=== PATIENT | female | born 1950 | race Caucasian/White ===

== ENCOUNTER → 2016-10-10 | Outpatient (CLI) | payer OTHER ==
[~2016-10-10] MED LIST: /DULO30CA PO; ACET65TA PO; ALEV220C2 PO; ALEV220T26 PO; ALEVE; ASPI81TA3 PO; ATEN25TA PO; ATOR1TAB21 PO; CALC1TAB56 PO; CALC600T10; CALCTAB22 PO; COUM2.5T17 PO; CYCL10TA PO; CYMB60CA3 PO; FLECTOR1.3 TD; FLEXERIL PO; GABA-282 PO; INDO25CA2 OR; LIDO5DIS EXT; LIDO5DIS41 TD; MILKSUS PO; MULT1TAB10 PO; ONDA4TAB6 PO; PERC5TAB12 PO; PRIL20CA9 PO; SENN1TAB2 PO; THERGRAN PO; TRAM50TA2 PO; TYLE325T5 PO; TYLE500T78 PO; VICO5TAB; VICO5TAB PO; VITA500C24 PO; VITA500T PO; VITA500T3 PO; [UNRECOGNIZED DRUG - OTHER] PO
--- NOTE | 2016-10-10 16:51 | REP ---
TRIPLE PHASE BONE SCAN OF THE KNEES: Following the intravenous administration of 21.0 millicuries of technetium 99M MDP, patient's knees are imaged in the flow phase and the anterior and posterior projections showing increased blood flow in the region of the right knee compared to the left. Immediate blood pool and 2 hour delayed images are performed of the knees in the anterior, posterior, and both lateral projections. There is mild diffuse increase blood pooling in the region of the right knee adjacent to a photopenic prosthesis which appears to have been placed 12/02/2015. Delayed imaged again show the photopenic prosthesis with diffuse increased uptake in the distal femur and proximal tibia adjacent to the prosthesis. There is also increased uptake diffusely in the right patella. Left knee joint demonstrates mild periarticular arthritic uptake both medially and laterally. IMPRESSION: Increased blood flow, blood pooling and delayed activity in the distal femur and proximal tibial adjacent to the right knee prosthesis. There is also increased uptake in the right patella. Signed by Tano Raymond MD 10/10/2016 05:11 P
== END ==
LOC: M RAD 09:49
PROVIDERS: ATTEND Physician Assistant
DX: Z96.651 Presence of right artificial knee joint (principal)

== ENCOUNTER → 2016-11-03 | Outpatient (REF) | payer OTHER ==
[2016-11-03 12:02] LABS: BASO % 0.3 % (0.0-1.0); EOS # 0.2 K/mm3 (0.0-0.50); EOS % 1.7 % (0.0-3.0); LARGE UNSTAINED CELL # 0.3 K/mm3 (0.0-0.4); LARGE UNSTAINED CELL % 3.3 % (0.0-4.0); LYMPH # 1.2 K/mm3 (1.5-4.5); MEAN CORPUSCULAR HEMOGLOBIN 28.4 pg (27.0-33.0); MEAN CORPUSCULAR HGB CONC 32.7 g/dl (32.0-36.5); MONO # 0.6 K/mm3 (0.0-0.8); MONO % 6.5 % (0.0-5.0); NEUTROPHILS # 7.4 K/mm3 (1.8-7.7); NEUTROPHILS % 76.2 % (36.0-66.0); PLATELET COUNT, AUTOMATED 377 k/mm3 (150-450); RED CELL DISTRIBUTION WIDTH 14.8 % (11.5-14.5); WHITE BLOOD COUNT 9.7 K/mm3 (4.0-10.0)
[2016-11-03 13:48] LABS: ERYTHROCYTE SEDIMENTATION RATE 31 mm/hr (0-30)
[2016-11-03 21:36] LABS: SYNOVIAL FLUID COLOR PINK (YELLOW)
[2016-11-03 21:37] LABS: RBC ADVIA BF 0.11; WBC CALC. BF 7900 cells/uL (0-20)
[2016-11-03 21:38] LABS: BF DIFF IF INDICATED? YES (NO); HCT SOURCE RT KNEE; RBC CALC. BF < 10000 (< 10mm3 cells/uL)
[2016-11-04 08:14] LABS: CC BF DIFF EXAM CYTOCENTRIFUGE
== END ==
LOC: M LABDRAW1 11:25
PROVIDERS: ATTEND Orthopaedic Surgery
DX: M25.561 Pain in right knee (principal); Z96.651 Presence of right artificial knee joint

== ENCOUNTER → 2016-11-10 | Outpatient (CLI) | payer OTHER ==
[2016-11-10 11:10] LABS: MEAN CORPUSCULAR HEMOGLOBIN 28.5 pg (27.0-33.0); MEAN CORPUSCULAR HGB CONC 32.5 g/dl (32.0-36.5); MEAN CORPUSCULAR VOLUME 87.8 fl (80.0-96.0); RED CELL DISTRIBUTION WIDTH 14.8 % (11.5-14.5)
--- NOTE | 2016-11-10 11:27 | REP ---
Clinical: Preoperative assessment. Hypertension. . Comparison: 11/17/2015 . Technique: PA and lateral. Findings: The mediastinum and cardiac silhouette are normal. Airway is patent and midline. The lung chávez are clear and without acute consolidation, effusion, or pneumothorax. The skeletal structures are intact and normal. Impression: 1. No acute cardiopulmonary process. Signed by Te Santana MD 11/10/2016 11:17 A
[2016-11-10 11:38] LABS: ALBUMIN 3.6 GM/DL (3.2-5.2); ALBUMIN/GLOBULIN RATIO 1.06 (1.00-1.93); ALKALINE PHOSPHATASE 131 U/L (45-117); ALT/SGPT 25 U/L (12-78); ANION GAP 6 MEQ/L (8-16); AST/SGOT 14 U/L (15-37); BILIRUBIN,TOTAL 0.4 MG/DL (0.2-1.0); BLOOD UREA NITROGEN 16 MG/DL (7-18); CARBON DIOXIDE LEVEL 34 MEQ/L (21-32); CHLORIDE LEVEL 101 MEQ/L (98-107); CREATININE FOR GFR 0.55 MG/DL (0.55-1.02); GLOMERULAR FILTRATION RATE > 60.0 (>45); GLUCOSE, FASTING 78 MG/DL (80-110); POTASSIUM SERUM 4.3 MEQ/L (3.5-5.1); SODIUM LEVEL 141 MEQ/L (136-145)
--- NOTE | 2016-11-10 13:04 | ECGEPIP ---
Stationary ECG Study [facility] Test Date: 2016-11-10 Pat Name: CAMILLE SOLORZANO Department: Room: - Gender: F Resident Services Manager: ALEXANDER : 1950 Requested By: Moses Leslie Order Number: [id number] Reading MD: Destin Veliz Measurements Intervals [place] Rate: 51 P: 30 ID: 160 QRS: 14 QRSD: 88 T: 52 QT: 419 QTc: 388 Interpretive Statements SINUS BRADYCARDIA Delayed anterior R wave progression No significant change when compared to prior tracing of 11-17-15 Electronically Signed On 11-10-2016 13:04:21 EDT by Destin Veliz
[2016-11-10 14:07] LABS: INR 0.91
== END ==
LOC: M ADMPAT 10:07
PROVIDERS: ATTEND Orthopaedic Surgery
DX: Z01.818 Encounter for other preprocedural examination (principal); M00.9 Pyogenic arthritis, unspecified

== ENCOUNTER 2016-11-15 12:53 | Inpatient (IN) | payer OTHER ==
[2016-11-10 10:46] VITALS: BP 124/68
[~2016-11-15] VITALS: Ht 170.2 cm; Wt 86.2 kg
[2016-11-15] MEDS ORDERED: LR 1,000 ML IV ONE (13:00)
[2016-11-15] MEDS ORDERED: MIDAZOLAM INJ 2 MG/2 ML VIAL (J2250) As Ordered ONE ×2 (14:15→15:01)
[2016-11-15] MEDS ORDERED: fentaNYL 100 MCG/2 ML INJECTION (J3010) As Ordered ONE ×2 (14:15→15:00)
[2016-11-15] MEDS ORDERED: TOBRAMYCIN SULF 1.2 GM VIAL As Ordered ONE (14:17)
[2016-11-15] MEDS ORDERED: ceFAZolin 1GM INJ (J0690) As Ordered ONE (14:18)
[2016-11-15] MEDS ORDERED: VANCOMYCIN 1000 MG/20 ML VIAL (J3370) As Ordered ONE ×4 (14:18→16:47)
[2016-11-15] MEDS ORDERED: PROPOFOL 200 MG/20 ML VIAL As Ordered ONE ×4 (15:00→17:18)
[2016-11-15] MEDS ORDERED: LIDOCAINE 2% INJ 100 MG/5 ML SDV (FOR ANES.) As Ordered ONE (15:00)
[2016-11-15] MEDS ORDERED: fentaNYL 100 MCG/2 ML INJECTION (J3010) IV ONE (15:00)
[2016-11-15] MEDS ORDERED: MIDAZOLAM INJ 2 MG/2 ML VIAL (J2250) IV ONE (15:00)
--- NOTE | 2016-11-15 15:12 | HPE ---
DATE OF ADMISSION: 11/15/2016 This is a 66-year woman who has had a right total knee arthroplasty done last fall by Dr. Koo. She has had ongoing issues for several months of some pain and swelling, and it was determined based on preoperative workup, including knee aspiration, bone scan, x-rays, joint fluid analysis, that it was very likely she had an infected total knee. There was evidence of loosening on the x-ray. Her current medications include Aleve, aspirin, cyclobenzaprine, calcium, multivitamin, atorvastatin, Lidoderm atenolol, Cymbalta, omeprazole, diclofenac. PAST MEDICAL HISTORY: Includes: 1. Hypertension. 2. High cholesterol. 3. Gastroesophageal reflux disease (GERD). PAST SURGICAL HISTORY: Includes: 1. Previous knee surgeries, multiple on the right times four. 2. Lumbar spinal surgery. 3. Right foot surgery. SOCIAL HISTORY: The patient quit smoking 4 years ago but does drink alcohol. FAMILY HISTORY: Noncontributory. REVIEW OF SYSTEMS: Denies any current chest pain, heart palpitations, cough, wheezing, difficulty breathing, shortness of breath. Denies any abdominal pain, nausea, vomiting, constipation, diarrhea. Denies any recent respiratory infection or urinary symptoms. Does have ongoing pain with this right knee. PHYSICAL EXAMINATION: She is alert and oriented in no acute distress. HEENT: Extraocular muscles intact. Pharynx benign. CARDIAC: Regular rate and rhythm. LUNGS: Clear to auscultation. ABDOMEN: Soft, nontender, nondistended. EXTREMITIES: Right lower extremity demonstrates some moderate swelling of her knee. She has a well-healed curvilinear incision over the anteromedial aspect of the knee. She is grossly neurologically intact. Moves her foot and ankle and has good capillary refill. LABORATORY WORKUP: Her CBC was essentially within normal limits. She had a white count have in her knee aspiration of approximately 7800. Culture so far, aerobic culture from the office, has not grown anything. She had a bone scan that showed increased uptake around the entire prosthesis. She had an x-ray in the office that showed loosening around the prosthesis. IMPRESSION: Right knee replacement, almost a year out, with a several-month history of swelling and pain with multiple indicators for underlying infection. RECOMMENDATIONS: I have suggested that we go ahead with the resection arthroplasty and placement of an antibiotic spacer in the form of a Prostalac . She wishes to go ahead with this. She understands the nature of this, the risks of bleeding, infection, damage to nerves or vessels, persistent pain, wear, loosening, dislocation, blood clots, medical problems, , among others. Preoperative medical clearance was obtained by Dr. Connor. I have spoken with Dr. Santino León about this case several times, and she is recommending vancomycin postoperatively, and we will obtain multiple cultures prior to antibiotic initiation in the operating room in the form of aerobic, anaerobic times two and fungal cultures.
[2016-11-15] MEDS ORDERED: EPINEPHrine INJ 1 MG/ML 1ML AMP ONE (15:23)
[2016-11-15] MEDS ORDERED: ROPIvacaine 0.5% 30 ML INJECTION (J2795) ONE (15:23)
[2016-11-15] MEDS ORDERED: BUPIVACAINE LIPOSOME/PF 1.3% 20 ML VIAL (13.3MG/ML)(EXPAREL) As Ordered ONE (15:40)
[2016-11-15] MEDS ORDERED: TRANEXAMIC ACID 100 MG/ML 10ML VIAL As Ordered ONE (17:14)
[2016-11-15] MEDS ORDERED: EPINEPHrine INJ 1 MG/ML 1ML AMP As Ordered ONE (17:14)
[2016-11-15] MEDS ORDERED: PERCOCET 5MG/325MG TAB As Ordered ONE (17:51)
[2016-11-15] MEDS ORDERED: MORPHINE 1MG/ML IN 0.9% NACL 100ML IV BAG As Ordered ONE (17:55)
[2016-11-15] MEDS ORDERED: EPIDURAL/PCA KEYS XX PRN (18:15)
[2016-11-15] MEDS ORDERED: LR 1,000 ML IV SCH ×2 (18:15→18:30)
[2016-11-15] MEDS ORDERED: NALBUPHINE HCL 10 MG/ML AMP (J2300) IV PRN (18:15)
[2016-11-15] MEDS ORDERED: MORPHINE 1MG/ML IN 0.9% NACL 100ML IV BAG IV PRN (18:15)
[2016-11-15] MEDS ORDERED: PERCOCET 5MG/325MG TAB PO PRN (18:15)
[2016-11-15] MEDS ORDERED: ONDANSETRON 4MG/2ML VIAL (J2405) IV PRN ×2 (18:15→18:30)
[2016-11-15] MEDS ORDERED: fentaNYL 100 MCG/2 ML INJECTION (J3010) IV PRN (18:15)
[2016-11-15] MEDS ORDERED: NALOXONE INJ 0.4 MG/1 ML VIAL (J2310) IV PRN (18:15)
[2016-11-15] MEDS ORDERED: diphenhydrAMINE INJ 50MG/ML VIAL (J1200) IV PRN (18:15)
[2016-11-15] MEDS ORDERED: FLEET ENEMA PR PRN (18:30)
[2016-11-15 19:02] LABS: ANION GAP 7 MEQ/L (8-16); BLOOD UREA NITROGEN 12 MG/DL (7-18); CALCIUM LEVEL 8.6 MG/DL (8.8-10.2); CARBON DIOXIDE LEVEL 31 MEQ/L (21-32); CHLORIDE LEVEL 105 MEQ/L (98-107); CREATININE FOR GFR 0.54 MG/DL (0.55-1.02); GLOMERULAR FILTRATION RATE > 60.0 (>45); GLUCOSE, FASTING 101 MG/DL (80-110); POTASSIUM SERUM 4.4 MEQ/L (3.5-5.1); SODIUM LEVEL 143 MEQ/L (136-145)
[2016-11-15 19:30] VITALS: BP 102/52
--- NOTE | 2016-11-15 19:34 | CR ---
DATE OF CONSULTATION: 11/15/2016 REFERRING PHYSICIAN: Dr. Moses Leslie REASON FOR CONSULTATION: Management of chronic medical problems. HOSPITALIST : Dr. Oziel Lozano. CHIEF COMPLAINT: Persistent right knee pain. HISTORY OF PRESENT ILLNESS: This is a 66-year-old female with prior history of hypertension, hypercholesterolemia, reflux disease, with three previous right knee surgeries, one previous left knee surgery, lumbar spinal surgery, right foot surgery, underwent right total knee replacement in nov [address] Uche Koo. Had persistent symptoms of increasing pain. X-rays, bone scan and the aspiration consistent with loosening of the hardware as well as infection of the right total knee. The patient had joint fluid removed on 11/03/2016 which shows no organism seen, a few WBCs, moderate RBCs with no growth aerobically. The patient is admitted under orthopedic surgery, Dr. Moses Leslie, status post resection of arthroplasty and placement of antibiotic spacer in the form of Prostalac with recommendation for vancomycin postoperatively from Dr. Santino León according to Dr. Moses Leslie. PAST MEDICAL HISTORY: Hypertension. Hypercholesterolemia. Reflux disease. Depression. PAST SURGICAL HISTORY: Right knee surgeries times three, one previous left knee surgery. Lumbar spinal surgery. Right foot surgery. SOCIAL HISTORY: Retired, quit smoking three years ago. No alcohol use. FAMILY HISTORY: Noncontributory. HOME MEDICATIONS: - Tylenol extra strength 1 gram every 6 hourly as needed for pain - vitamin C 500 mg daily - atenolol 25 mg daily - atorvastatin 20 mg daily - vitamin B12 500 mcg daily - Cymbalta 60 mg daily - gabapentin 600 mg at bedtime - lidocaine patch transdermally - multivitamin one tablet daily - Prilosec 20 mg daily - Percocet one to two tablets as needed every 4 hours - tramadol 50 mg every 6 hourly as needed for pain - warfarin managed by orthopedic surgery - Senokot S one tablet by mouth twice a day - calcium with vitamin D one tablet daily - Naprosyn 220 every 12 if needed for pain REVIEW OF SYSTEMS: Per HPI, 12 point system otherwise negative. PHYSICAL EXAMINATION: Temperature 97, pulse 59, respiratory rate 14, blood pressure 95/52, 97% 2 liters nasal cannula. General: The patient is awake, alert , oriented times three. Answering questions appropriately. No cyanosis, use of accessory muscles. Extraocular muscles are intact. Neck is supple. Full range of motion. No cervical lymphadenopathy, thyromegaly. Lungs are clear to auscultation. No wheezing, rales or rhonchi. Heart: S1, S2. Sinus rhythm. Abdomen: Soft, nontender, nondistended. Positive bowel sounds. Extremities: Right knee postoperative. Currently bandaged. Able to move her feet. Skin warm and dry , well perfused bilaterally. No pitting edema in the left lower extremity. Good capillary refill bilaterally. LABS: 11/10/2016 CBC: White count 8, hemoglobin 12, hematocrit 38, platelet count 353, 76% neutrophils. Sodium 141, potassium 4.3, chloride 101, bicarbonate 34, BUN 16, creatinine 0.55. Glucose 78, calcium 9, total bilirubin 0.4, AST 14, ALT 25, alkaline phosphatase 131. CRP 1.9, total protein 7, albumin 3.6. MICROBIOLOGY: Right knee wound culture: Anaerobic and aerobic fungal smear and surgical biopsy 11/15/2016 pending. Bone scan 10/10/2016: Increased blood flow, blood pooling, delayed activity distal femur, proximal tibia, adjacent to the right knee prosthesis with increased uptake in the right patella. ASSESSMENT AND PLAN: This is a 65-year-old female with three prior surgeries on the right knee. The last one was November 2015 with persistent discomfort and pain, now with infected right total knee arthroplasty, status post resection of arthroplasty and antibiotic placement by spacer with Prostalac, with prior history of hypertension, hyperlipidemia with reflux disease, depression. Hospitalist service was consulted for management of other medical issues. CURRENT ISSUES: 1. 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 Leslie. The patient has received antibiotic spacer. Infectious disease specialist, Dr. Santino León has been consulted by Dr. Leslie with recommendations for vancomycin postoperatively. Defer to Dr. León for any antibiotic changes. 2. Hypertension with episodes of sinus bradycardia. no heart blocks noted on telemetry. asymptomatic bradycardia with heart rate in 50's with blood pressure well-maintained above systolic of 90 and mean arterial pressure >65-70. may resume home atenolol with holding parameters. 3. Hyperlipidemia. Continue atorvastatin. 4. Reflux disease. Continue on Prilosec. 5. Depression. Continue on Cymbalta. 6. Pain management per primary team. 7. Deep venous thrombosis (DVT) prophylaxis per primary team. Currently receiving 5 mg of Coumadin. The patient will be signed out to Dr. Oziel Lozano at 7:00 pm on 11/15/2016. CC: Dr. May, the patient's primary care physician. SHRUTHID
[2016-11-15 20:00] VITALS: BP 99/55
[2016-11-15] MEDS: ATORVASTATIN 20 MG TAB PO SCH (20:14)
[2016-11-15] MEDS: SENOKOT S TAB PO SCH (20:14)
[2016-11-15 20:30] VITALS: BP 98/55
[2016-11-15] MEDS ORDERED: WARFARIN SOD 5 MG TAB PO ONE (21:00)
[2016-11-15] MEDS: MUPIROCIN 2% OINT 22 GM TUBE TOP SCH (21:00)
[2016-11-15 22:30] VITALS: BP 104/57
[2016-11-16 02:00] VITALS: BP 116/61
[2016-11-16] MEDS ORDERED: VANCOMYCIN HCL 1,000 MG, VIAL MATE ADAPTER 1 EACH in D5W 250 ML IV ONE (03:00)
[2016-11-16] MEDS: ACETAMINOPHEN TAB 650MG DOSE (2X325MG) PO PRN (03:44)
[2016-11-16 06:00] VITALS: BP 110/60
[2016-11-16 06:40] LABS: BASO % 0.2 % (0.0-1.0); EOS % 0.3 % (0.0-3.0); LARGE UNSTAINED CELL # 0.3 K/mm3 (0.0-0.4); LARGE UNSTAINED CELL % 3.5 % (0.0-4.0); LYMPH % 9.7 % (24.0-44.0); MEAN CORPUSCULAR HEMOGLOBIN 28.4 pg (27.0-33.0); MEAN CORPUSCULAR HGB CONC 32.7 g/dl (32.0-36.5); MEAN CORPUSCULAR VOLUME 86.8 fl (80.0-96.0); MONO # 0.8 K/mm3 (0.0-0.8); MONO % 8.1 % (0.0-5.0); NEUTROPHILS # 7.6 K/mm3 (1.8-7.7); NEUTROPHILS % 78.1 % (36.0-66.0); PLATELET COUNT, AUTOMATED 325 k/mm3 (150-450); RED CELL DISTRIBUTION WIDTH 14.7 % (11.5-14.5); WHITE BLOOD COUNT 9.7 K/mm3 (4.0-10.0)
[2016-11-16] MEDS ORDERED: PERCOCET 5MG/325MG TAB PO PRN (06:45)
[2016-11-16] MEDS ORDERED: ONDANSETRON 4 MG TAB (S0181) PO PRN (06:45)
[2016-11-16 06:58] LABS: ERYTHROCYTE SEDIMENTATION RATE 48 mm/hr (0-30)
[2016-11-16 07:01] LABS: MAGNESIUM LEVEL 1.6 MG/DL (1.8-2.4)
[2016-11-16 07:41] LABS: INR 1.13
--- NOTE | 2016-11-16 07:42 | RO ---
DATE OF PROCEDURE: 11/15/2016 PREOPERATIVE DIAGNOSIS: Infected right knee arthroplasty with loosening. POSTOPERATIVE DIAGNOSIS: Infected right knee arthroplasty with loosening. PROCEDURE: Resection arthroplasty of right total knee arthroplasty and placement of antibiotic cement spacer, Prostalac and antibiotic beads that are absorbable. SURGEON: Moses Leslie MD AIRCRAFT ENGINE DISMANTLER: Tanmay Corea MD ANESTHESIA: Spinal. ESTIMATED BLOOD LOSS: 200. COMPLICATIONS: None. INDICATIONS: This is a 66-year woman who had a total knee replacement almost a year ago by Dr. Koo, who over the past few months has been having increasing difficulties and pain and swelling. She had several indicators that suggested infection in this knee and there was loosening on the x-ray and bone scan. She wished to go ahead with surgical treatment. She understood the nature of this, the risks of bleeding, infection, damage to nerves/vessels, persistent pain, wear loosening, dislocation, blood clots, medical problems, , and ongoing infection. DESCRIPTION OF PROCEDURE: The patient was taken to the operating room and placed supine position after general spinal anesthesia was induced. The right lower extremity was prepped and draped in the usual sterile fashion. We inflated the tourniquet. A time-out was performed. No antibiotics were given preoperatively intentionally. I then created a curvilinear incision and following the previous incision as this had been a multiple operated on knee. I then created small flaps on either side of the incision above the fascia and then created a medial parapatellar arthrotomy per routine. There was gross cloudy, reddish fluid that was copious in the knee. This was cultured with a total of three anaerobic and two aerobic cultures, one anaerobic would be sent for fungus, and I also obtained two soft tissue specimens, one for pathology to look for acute inflammation and the other for culture. At this point, I was able to free up the medial side and lateral side and eventually loan the patella and used a saw to remove the patella and drills to remove the plastic from the drill holes on the patella. We then were able to perform a synovectomy using the rongeur and a knife throughout the entire knee. This was done very meticulously and both of us assisted. The knee was flexed up and it was evident that the femoral component was loose. I worked my way around it with a flexible osteotome, but we actually were able to remove it relatively easily and the cement that was remaining on the femur came off relatively easily as well. It was clearly very loose. The tibial tray was then removed. It was removed with a handy-dandy by tapping up on it and removing the polyethylene. I then used the flexible osteotome to go underneath the tibial tray working my way around it and then I used two rigid osteotomes, one on either side, which lifted the tray out, again relatively easily. There was evidence of loosening of the tibial side. The offset assistant press operator worked his way around the post in the tibial side to remove the bone cement as I performed a further synovectomy and removed any membrane on the bone. We removed all the cement and then sized the Prostalac to be a medium and judged the space between the femur and tibia to be roughly a 25 mm. So we selected the medium Prostalac and planned on using a 15 mm tibial insert made of cement. The cement was mixed by the offset assistant press operator on the back table with tobramycin cement and vancomycin. This was mixed in the usual fashion in two separate bowls with two bags in each bowl. Once I had copiously irrigated the knee with 3 liters of antibiotic irrigation, I then put the doughy cement into the femoral component size medium Prostalac and fitted it down into the Prostalac mold nicely. I then secured this on the end of the femur, removing excess bone cement. At the same time, we had poured up to 15 mm into the tibial tray mold and I also created a small cement stem in the center of this to allow to be centralized. Once the tibial side had hardened, I placed this in and placed the stem down the canal, and this stayed on the tibial surface quite nicely and the knee seemed to have a good range of motion and relatively good stability. I again irrigated. I did put some tranexamic acid (TXA) solution in because we had released the tourniquet and this was done to control hemostasis. I also had started the vancomycin IV right after we had taken the initial cultures. The two different sizes of absorbable antibiotic beads with vancomycin and tobramycin were then placed, the larger ones into the knee joint and I then began to repair the deep layer with #1 Vicryl suture. I had also used Exparel injectable, a total of 20 mL diluted into 40 and injected this around the capsule and around the deep layers, particularly in the quadriceps and around the patellar tendon etc. I avoided the subcutaneous tissue. We had injected some of the posterior capsule and all around the periosteum prior to placement of the tibial component. Final deep wound closure was done with a Stratafix. Watertight closure was noted. I did place two #19 J-VAC drains and hooked these up to a bulb syringe. Placed the small beads on the subcutaneous tissue and closed subcutaneous with #2-0 Vicryl and the skin with lynn. Sterile dressing was applied. Tourniquet was deflated prior to wound closure and tourniquet time, I believe was roughly in the hour and 20 minute range. Once sterile dressing was applied, she was taken to recovery room in stable condition. There were no known complications. The plan will be routine post-op for an infected arthroplasty, which would be likely 6 weeks of IV antibiotics depending upon what organism we might be able to isolate, and this will also depend on what the infectious disease expert recommends. We would then likely at some point after that aspirate the knee and see if it is a clean aspirate and then consider replanting this with a revision component. The offset assistant press operator was instrumental in performing the synovectomy and helping remove bone cement, helping remove the prosthesis, helping form the Prostalac, etc.
[2016-11-16] MEDS: MULTIVITAMINS/MINERALS THERAP 1 TAB PO SCH (08:17)
[2016-11-16] MEDS: ASCORBIC ACID 500 MG TAB PO SCH (08:17)
[2016-11-16] MEDS: CYANOCOBALAMIN 500 MCG TAB PO SCH (08:17)
[2016-11-16] MEDS: CALCIUM/VITAMIN D 500 MG TAB PO SCH (08:17)
[2016-11-16] MEDS: DULoxetine 30 MG CAP (CYMBALTA) PO SCH (08:17)
[2016-11-16] MEDS: VITAMIN D (CHOLECALCIFEROL) 400 INTERNATIONAL UNITS TAB PO SCH (08:17)
[2016-11-16] MEDS: MOM 30ML SUSPENSION UDC PO SCH (08:17)
[2016-11-16] MEDS: OMEPRAZOLE 20 MG CAP PO SCH (08:18)
[2016-11-16] MEDS: SENOKOT S TAB PO SCH ×2 (08:18→21:42)
[2016-11-16] MEDS: ATENOLOL 25 MG TAB PO SCH (08:18)
[2016-11-16] MEDS: MUPIROCIN 2% OINT 22 GM TUBE TOP SCH ×3 (08:19→21:00)
[2016-11-16] MEDS: MIRALAX *UNIT DOSE* 17GM PACKET PO SCH (08:19)
[2016-11-16] MEDS: PERCOCET 5MG/325MG TAB PO PRN ×4 (08:19→21:43)
[2016-11-16 10:00] VITALS: BP 114/62
[2016-11-16] MEDS: VANCOMYCIN HCL 1,000 MG, VIAL MATE ADAPTER 1 EACH in D5W 250 ML IV SCH ×2 (10:40→21:42)
--- NOTE | 2016-11-16 10:43 | PHACANCOPD ---
PHARMACY VANCOMYCIN DOSING Pt Demographics Demographics Patient Age:66 , Weight:86.180 , Gender: female Adjusted Body Weight Date: 11/16/16, Adjusted Body Weight: Kg Events Past 24 Hours Events Past 24 Hours: NO: Dialysis, Diuretic Therapy, Change in CrCl, Fever, Elevation in WBC, Pending Diagnostics, Pending Procedures, Other Vancomycin Vancomycin indication: osteomyelitis Vancomycin Target Ranges: 15-20 mcg/ml Vancomycin Load Y/N: Yes Load Dose Date Time Vancomycin Load Dose: 1500mg Date: 11/16 Time: 1000 Vancomycin Dose Date: 11/16/16. Current Vancomycin Dose: [1000mg iv q12h @2200] Intermittent Dosing?: No Labs Labs Item Value Date Time White Blood Count 9.7 K/mm3 11/16/16 0624 Creatinine 0.54 MG/DL L 11/15/16 1824 Micro Microbiology 11/15/16 Surgical Biopsy Culture, Received Pending 11/15/16 Wound Culture, Received Pending 11/15/16 Anaerobic Culture, Received Pending 11/15/16 Wound Culture, Received Pending 11/15/16 Anaerobic Culture, Received Pending 11/15/16 Fungal Smear, Received Pending 11/15/16 Fungal Culture, Received Pending Creatinine Clearance Date:11/16/16. Creatinine Clearance: [>100ml/min]. Pending Labs vanco trough 11/17 @2099 Assessment and Plan Maintaining Current Dose?: Yes Reason for dose change: No Dose Change Pharmacist Note Pharmacist Note Date: 11/16/16. Pharmacist note: Vanco 1500mg loading dose followed 12 hours later with vanco 1gm q12h was implemented for the post op treatment of septic joint. Cultures are pending. Trough is scheduled after 3 doses (11/17 @ 2100) . Continue to monitor renal function and adjust dose as needed. CAITY SANCHEZ PHARMACY Nov 16, 2016 10:43
[2016-11-16] MEDS ORDERED: VANCOMYCIN HCL 500 MG in D5W MINI-BAG PLUS 100 ML IV ONE (11:00)
[2016-11-16] MEDS: LIDOCAINE 5% (LIDODERM) PATCH TD SCH (12:13)
[2016-11-16 14:00] VITALS: BP 116/64
--- NOTE | 2016-11-16 14:50 | IPNPDOC ---
Text Note Date of Service The patient was seen on 11/16/16. NOTE Subjective: Patient feels well. Has pain at the surgical site. Denies any changes overnight. Objective: Vitals: (see below) General: No acute distress, laying comfortably in bed. HEENT: Moist mucous membranes. Neck: No JVD or lymphadenopathy Cardiac: RRR, No murmurs Pulm: Clear to auscultation b/l. No wheezing, rhonchi Abd: NT/ND + BS Ext: No edema or cyanosis. Right knee in bandage with NIELS draining serosanguineous drainage. It is the pulses intact. No signs of erythema. Labs (see below) Images: Assessment/Plan 1. Suspected right knee infection status post right total knee arthroplasty in November 2015. Management per primary team. Patient received antibiotic spacer. Dr. León contacted by Dr. Leslie recommendations for vancomycin postop. Defer antibiotics to ID. pain management per primary team. 2. Hypertension- controlled continue home meds 3. Hyperlipidemia- continue statin 4. GERD -continue Prilosec 5. Depression- continue meds DVT prophy: Per orthopedics VS,Kar, I+O VS, Kar, I+O Laboratory Tests 11/15/16 18:24 Calcium Level 8.6 L 11/16/16 06:24 Red Blood Count 3.67 L, Mean Corpuscular Volume 86.8, Mean Corpuscular Hemoglobin 28.4, Mean Corpuscular Hemoglobin Concent 32.7, Red Cell Distribution Width 14.7 H, Neutrophils (%) (Auto) 78.1 H, Lymphocytes (%) (Auto ) 9.7 L, Monocytes (%) (Auto) 8.1 H, Eosinophils (%) (Auto) 0.3, Basophils (%) ( Auto) 0.2, Neutrophils # (Auto) 7.6, Lymphocytes # (Auto) 1.0 L, Monocytes # ( Auto) 0.8, Eosinophils # (Auto) 0.0, Basophils # (Auto) 0.0 Vital Signs Date Time Temp Pulse Resp B/P (MAP) Pulse Ox O2 Delivery O2 Flow Rate FiO2 11/16/16 14:00 98.2 70 18 116/64 (81) 98 Nasal Cannula 2.0 I&O- Last 24 Hours up to 6 AM 11/17/16 06:00 Intake Total 1710 ml Output Total 1310 ml Balance 400 ml LIONEL ADAMS MD Nov 16, 2016 14:50
--- NOTE | 2016-11-16 15:07 | REP ---
Right knee two views: Comparison is 12/02/2015. The previous knee arthroplasty has been removed and replaced with a new joint spacing device. There are numerous tiny radiopaque pellets in the joint space and soft tissues. There are surgical drains. Mineralization is normal. Signed by Tano Randolph MD 11/16/2016 02:59 P
[2016-11-16] MEDS ORDERED: WARFARIN SOD 5 MG TAB PO ONE (17:00)
[2016-11-16 18:00] VITALS: BP 120/67
[2016-11-16] MEDS: **NOTE PATIENT COMMENT** MISC XX SCH (21:00)
[2016-11-16] MEDS: ATORVASTATIN 20 MG TAB PO SCH (21:42)
[2016-11-16] MEDS: GABAPENTIN 300 MG CAP PO SCH (21:42)
[2016-11-16 22:00] VITALS: BP 129/61
--- NOTE | 2016-11-16 22:02 | CR ---
DATE OF CONSULTATION: 11/16/2016 Asked to consult by dr misha Leslie 66-year-old female who is a patient of Dr. Leslie for a prosthetic joint infection and resection and debridement of the old prosthesis. The patient had a right total knee arthroplasty done by Dr. Koo on 12/01/2015 for tricompartmental arthritis. The patient had an uneventful postoperative course, the wound healed pretty well but she continued to have chronic pain. The patient was seen in consultation by orthopedics and had a second opinion by orthopedic surgery in [facility] and she was treated with gabapentin for chronic pain. Over the past 4 months, she has had increasing pain, then she started developing some night sweats and chills. The patient was seen by Dr. Leslie who ordered a bone scan, it showed increased blood flow and blood pooling with delayed activity and therefore there was a suspicion of prosthetic joint infection. A knee aspiration was done which was suggestive of prosthetic joint infection with 7900 white cells with predominant neutrophils 89%, although cultures have remained negative even after 14 days. 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 On 11/15/2016, the patient went to the operating room where she had removal of the old hardware, resection and arthroplasty, placement of antibiotic cement spacer and antibiotic beads. The patient has also been started on IV vancomycin. She denies any fever currently, no nausea, vomiting or diarrhea. No abdominal pain. 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 PAST SURGICAL HISTORY: Four knee surgeries on the right side, right total knee replacement November of 2016, lumbar spine surgery, right foot surgery. The patient played softball for 30 years. 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 No alcohol use. Quit smoking 3 years ago. FAMILY HISTORY: Nonrevealing. REVIEW OF SYSTEMS: No fever. She had some chills and night sweats. No nausea, vomiting or diarrhea. No chest pain. No upper or lower extremity weakness. ALLERGIES: No known drug allergies. MEDICATIONS: - gabapentin 600 mg by mouth nightly - vancomycin 1 gram IV every 12 hours since 11/16/2016 - vitamin C 500 mg by mouth daily - atenolol 25 mg by mouth daily - Cymbalta 60 mg by mouth daily - vitamin B12 500 mcg daily - multivitamin one tablet daily - Prilosec 20 mg daily - calcium with vitamin D daily - MiraLax one packet daily - milk of magnesia as needed - Percocet as needed for pain - mupirocin to nares twice a day - Senokot one tablet by mouth twice a day LABORATORY DATA: 11/16/2016: White count 9.7, hemoglobin 10.4, hematocrit 31.8, platelets 325, 78% neutrophils, 10% lymphocytes, 8% monocytes, ESR is 48 postoperatively, last week ESR was 27. Sodium 143, potassium 4.4, chloride 105, bicarbonate 31, BUN 12, creatinine 0.54, glucose 101, calcium 8.6, magnesium 1.6, CRP again post surgery is 5.96, presurgery was 1.93, cholesterol 128, triglycerides 124. Urinalysis had +1 leukocyte esterase, 5 red cells. Fungal culture, wound culture from the knee surgical biopsy culture all are pending. Urine culture was negative on 11/10/2016. IMAGING STUDIES: Knee x-ray 11/16/2016, shows removal of previous knee arthroplasty, numerous tiny radio-opaque pellets in the joint space and soft tissue. Chest x-ray showed no acute disease. Bone scan was done on 10/10/2016, and was reviewed with Dr. Dunn which showed increased blood pooling and delayed activity in the distal femur and proximal tibial adjacent to the right knee prosthesis consistent with a periprosthetic infection. IMPRESSION: This is a 66-year-old female who underwent total knee arthroplasty about a year ago. Has had chronic pain, worse over the past 4 months. Findings preoperatively were consistent with periprosthetic joint infection with elevated white cells and synovial fluid, predominant neutrophils, slight elevation in CRP and sedimentation rate. Unfortunately cultures have remained negative. This is most likely a low-virulent organism such as Staphylococcus epidermidis or Propionibacterium acnes. The patient has been started on IV vancomycin pending results of more recent cultures. PLAN: Continue IV vancomycin for the time being until recent cultures are available. PICC line placement over the weekend. The patient hopefully could be discharged home or to acute rehabilitation on Sunday after teaching regarding PICC line will be done. She has family members that are available at the bedside to help her with IV infusion as she lives at home alone. TIFFANIE
[2016-11-17] MEDS: PERCOCET 5MG/325MG TAB PO PRN ×4 (05:20→22:31)
[2016-11-17 06:00] VITALS: BP 112/55
[2016-11-17 06:42] LABS: INR 1.39
[2016-11-17 07:43] LABS: BASO % 0.2 % (0.0-1.0); EOS # 0.1 K/mm3 (0.0-0.50); EOS % 0.6 % (0.0-3.0); LARGE UNSTAINED CELL # 0.4 K/mm3 (0.0-0.4); LARGE UNSTAINED CELL % 3.6 % (0.0-4.0); LYMPH # 0.7 K/mm3 (1.5-4.5); LYMPH % 7.2 % (24.0-44.0); MEAN CORPUSCULAR HEMOGLOBIN 28.9 pg (27.0-33.0); MEAN CORPUSCULAR HGB CONC 33.4 g/dl (32.0-36.5); MEAN CORPUSCULAR VOLUME 86.6 fl (80.0-96.0); MONO # 0.7 K/mm3 (0.0-0.8); MONO % 6.9 % (0.0-5.0); NEUTROPHILS # 8.2 K/mm3 (1.8-7.7); NEUTROPHILS % 81.4 % (36.0-66.0); PLATELET COUNT, AUTOMATED 284 k/mm3 (150-450); RED CELL DISTRIBUTION WIDTH 14.5 % (11.5-14.5); WHITE BLOOD COUNT 10.1 K/mm3 (4.0-10.0)
[2016-11-17 07:53] LABS: ANION GAP 7 MEQ/L (8-16); BLOOD UREA NITROGEN 10 MG/DL (7-18); CALCIUM LEVEL 8.9 MG/DL (8.8-10.2); CARBON DIOXIDE LEVEL 34 MEQ/L (21-32); CHLORIDE LEVEL 99 MEQ/L (98-107); CREATININE FOR GFR 0.46 MG/DL (0.55-1.02); GLOMERULAR FILTRATION RATE > 60.0 (>45); GLUCOSE, FASTING 124 MG/DL (80-110); POTASSIUM SERUM 3.9 MEQ/L (3.5-5.1); SODIUM LEVEL 140 MEQ/L (136-145)
[2016-11-17] MEDS: MIRALAX *UNIT DOSE* 17GM PACKET PO SCH (08:23)
[2016-11-17] MEDS: MOM 30ML SUSPENSION UDC PO SCH (08:24)
[2016-11-17] MEDS: LIDOCAINE 5% (LIDODERM) PATCH TD SCH (08:24)
[2016-11-17] MEDS: CYANOCOBALAMIN 500 MCG TAB PO SCH (08:25)
[2016-11-17] MEDS: SENOKOT S TAB PO SCH ×2 (08:25→20:40)
[2016-11-17] MEDS: MULTIVITAMINS/MINERALS THERAP 1 TAB PO SCH (08:25)
[2016-11-17] MEDS: ASCORBIC ACID 500 MG TAB PO SCH (08:25)
[2016-11-17] MEDS: OMEPRAZOLE 20 MG CAP PO SCH (08:25)
[2016-11-17] MEDS: CALCIUM/VITAMIN D 500 MG TAB PO SCH (08:25)
[2016-11-17] MEDS: ATENOLOL 25 MG TAB PO SCH (08:25)
[2016-11-17] MEDS: DULoxetine 30 MG CAP (CYMBALTA) PO SCH (08:25)
[2016-11-17] MEDS: ACETAMINOPHEN TAB 650MG DOSE (2X325MG) PO PRN (08:25)
[2016-11-17] MEDS: MUPIROCIN 2% OINT 22 GM TUBE TOP SCH ×3 (08:26→20:40)
[2016-11-17] MEDS: VITAMIN D (CHOLECALCIFEROL) 400 INTERNATIONAL UNITS TAB PO SCH (08:26)
[2016-11-17] MEDS ORDERED: INFLUENZA QUADRIVALENT PF VACCINE 0.5ML SYRINGE (90686) IM ONE (09:00)
--- NOTE | 2016-11-17 11:41 | IPN ---
DATE OF CONSULTATION: 11/17/2016 Mrs. Ruiz seems to be doing very well. She is out of bed ambulating to the bathroom. Pain is under control. She has had no fever, mild chills. No nausea , vomiting or diarrhea. No abdominal pain. Temperature is 95, pulse 67, respirations 18, blood pressure 112/55, O2 sat 92% on 2 liters. Heart: Normal S1-S2. No murmurs. Lungs are clear. Abdomen: Soft, nontender. Right knee in a brace was not examined. She has serosanguineous drainage in both drains no purulent discharge. White count is 10.1, hemoglobin 9.4, hematocrit 28.3, platelets 284, 81% neutrophils, 7% lymphocytes, 7% monocytes. Sodium 140, potassium 3.9, chloride 99, bicarb 34, BUN 10, creatinine 0.46, glucose 124, calcium 8.9, PT 17.4, INR 1.39. Right knee surgical biopsy: no growth aerobically. Wound aerobic/anaerobic cultures are all negative. They will be held for 14 days. Fungal smear culture positive. IMPRESSION: Right knee prosthetic joint infection based on abnormal bone scan and aspirate showing predominately neutrophils with a cell count of 7000. Status post removal of prosthesis. So far cultures are negative. The patient on IV vancomycin. PLAN: 1-PICC line placement today. 2-Continue IV vancomycin add cipro 750 mg PO BID for gram negatives, culture negative PJI that can occur in 7% of patients. 3- I have called microbiology to hold the culture reports of culture results for total 14 days to rule out Propionibacterium acnes. 4- Repeat ESR, CRP on Sunday. We will decide on home IV antibiotics on Sundaywill need treatment for 6 weeks MTDD
[2016-11-17] MEDS: VANCOMYCIN HCL 1,000 MG, VIAL MATE ADAPTER 1 EACH in D5W 250 ML IV SCH ×2 (12:09→22:30)
[2016-11-17 14:00] VITALS: BP 102/55
--- NOTE | 2016-11-17 15:30 | IPNPDOC ---
Text Note Date of Service The patient was seen on 11/17/16. NOTE Subjective: Patient feels well. Has pain at the surgical site. Denies any changes overnight. Objective: Vitals: (see below) General: No acute distress, laying comfortably in bed. HEENT: Moist mucous membranes. Neck: No JVD or lymphadenopathy Cardiac: RRR, No murmurs Pulm: Clear to auscultation b/l. No wheezing, rhonchi Abd: NT/ND + BS Ext: No edema or cyanosis. Right knee in bandage with NIELS draining serosanguineous drainage. No signs of erythema. RUE PICC line in place. No bleeding. Distal pulses intact. Labs (see below) Images: Assessment/Plan 1. Suspected right knee infection status post right total knee arthroplasty in November 2015. Management per primary team. Patient received antibiotic spacer. Dr. León contacted by Dr. Leslie recommendations for vancomycin postop. Defer antibiotics (Vanc/Cipro) per ID - 6 weeks Abx. pain management per primary team. 2. Hypertension- controlled continue home meds 3. Hyperlipidemia- continue statin 4. GERD -continue Prilosec 5. Depression- continue meds DVT prophy: Per orthopedics VS,Jaceke, I+O VS, Fishbone, I+O Laboratory Tests 11/17/16 05:59 Red Blood Count 3.26 L, Mean Corpuscular Volume 86.6, Mean Corpuscular Hemoglobin 28.9, Mean Corpuscular Hemoglobin Concent 33.4, Red Cell Distribution Width 14.5, Neutrophils (%) (Auto) 81.4 H, Lymphocytes (%) (Auto) 7.2 L, Monocytes (%) (Auto) 6.9 H, Eosinophils (%) (Auto) 0.6, Basophils (%) ( Auto) 0.2, Neutrophils # (Auto) 8.2 H, Lymphocytes # (Auto) 0.7 L, Monocytes # ( Auto) 0.7, Eosinophils # (Auto) 0.1, Basophils # (Auto) 0.0, Calcium Level 8.9 Vital Signs Date Time Temp Pulse Resp B/P (MAP) Pulse Ox O2 Delivery O2 Flow Rate FiO2 11/17/16 14:00 98.0 68 16 102/55 (71) 98 Room Air 11/17/16 06:00 2.0 I&O- Last 24 Hours up to 6 AM 11/18/16 06:00 Intake Total 480 ml Output Total 690 ml Balance -210 ml LIONEL ADAMS MD Nov 17, 2016 15:30
[2016-11-17] MEDS ORDERED: WARFARIN SOD 5 MG TAB PO ONE (17:00)
[2016-11-17] MEDS: SODIUM CHLORIDE 0.9% INJ 10 ML SYR IV SCH (17:16)
[2016-11-17] MEDS: CIPROFLOXACIN 250 MG TAB PO SCH (17:16)
--- NOTE | 2016-11-17 19:29 | REP ---
Procedure: PICC line insertion with Jeremiah-Thania The procedure was performed under the direct supervision of Dr. Raymond. The risks and benefits of the procedure were explained to the patient and informed consent was obtained. The right basilic vein was localized using ultrasound guidance. The skin was prepped and draped in a sterile fashion. 2% lidocaine was used as a local anesthetic. Using ultrasound guidance the basilic vein was cannulated and a 0.018 guidewire was inserted and advanced to the SVC using fluoroscopic guidance. The needle was removed and a 4.5 Tongan dilator and peel-away sheath was inserted over the guide wire. A 4.5 Tongan single lumen catheter was cut to length of 39 cm. The dilator was removed and the catheter was inserted over the guide wire with the tip ending in the SVC. The peel-away sheath was removed and the catheter was flushed with heparinized saline as per Hospital protocol. The catheter was affixed to the skin and a sterile dressing was applied. The the patient tolerated the procedure well and there were no immediate complications. 0.2 minutes of fluoro time was utilized for this procedure. Reviewed by SHERYL Giron 11/17/2016 02:50 PSigned by Tano Raymond MD 11/17/2016 07:20 P
[2016-11-17] MEDS: SODIUM CHLORIDE NASAL 0.65% SPRAY BTL (OCEAN) SCH (20:40)
[2016-11-17] MEDS: GABAPENTIN 300 MG CAP PO SCH (20:40)
[2016-11-17] MEDS: ATORVASTATIN 20 MG TAB PO SCH (20:40)
[2016-11-17] MEDS: **NOTE PATIENT COMMENT** MISC XX SCH (20:40)
[2016-11-17 22:00] VITALS: BP 113/58
[2016-11-17] MEDS ORDERED: VANCOMYCIN HCL 1,000 MG, VIAL MATE ADAPTER 1 EACH in D5W 250 ML IV ONE (23:00)
--- NOTE | 2016-11-17 23:29 | PHACANCOPD ---
PHARMACY VANCOMYCIN DOSING Pt Demographics Demographics Patient Age:66 , Weight:86.180 , Gender: female Adjusted Body Weight Date: 11/16/16, Adjusted Body Weight: Kg Vancomycin Vancomycin indication: osteomyelitis Vancomycin Target Ranges: 15-20 mcg/ml Vancomycin Load Y/N: Yes Load Dose Date Time Vancomycin Load Dose: 1500mg Date: 11/16 Time: 1000 Vancomycin Dose Date: 11/16/16. Current Vancomycin Dose: [1000mg iv q12h @2200] Intermittent Dosing?: No Labs Micro Microbiology 11/15/16 Surgical Biopsy Culture - Final, Complete 11/15/16 Wound Culture - Final, Complete 11/15/16 Anaerobic Culture - Final, Complete 11/15/16 Wound Culture - Final, Complete 11/15/16 Anaerobic Culture - Final, Complete 11/15/16 Fungal Smear, Received Pending 11/15/16 Fungal Culture, Received Pending Creatinine Clearance Date:11/16/16. Creatinine Clearance: [>100ml/min]. Pending Labs vanco trough 11/17 @2100 Assessment and Plan Maintaining Current Dose?: No Reason for dose change: Trough too low Pharmacist Note Pharmacist Note 11/17/16: Trough today resulted at 7.6mg/ml. The patient will receive a 2g loading dose tonight, followed by a maintenance regimen of 1g IV Q8H for the treatment of her right knee prosthetic joint infection. A follow-up trough is scheduled to be drawn tomorrow, 11/18/16, at 2100 - aiming for a goal trough of 15-20mcg/ml. We will continue to monitor and make further dose adjustments if needed. Date: 11/16/16. Pharmacist note: Vanco 1500mg loading dose followed 12 hours later with vanco 1gm q12h was implemented for the post op treatment of septic joint. Cultures are pending. Trough is scheduled after 3 doses (11/17 @ 2100) . Continue to monitor renal function and adjust dose as needed. SHANTA DAVIS PHARMACY Nov 17, 2016 23:29
[2016-11-18] MEDS: CIPROFLOXACIN 250 MG TAB PO SCH ×2 (05:47→17:26)
[2016-11-18] MEDS: VANCOMYCIN HCL 1,000 MG, VIAL MATE ADAPTER 1 EACH in D5W 250 ML IV SCH ×3 (05:47→22:25)
[2016-11-18] MEDS: SODIUM CHLORIDE 0.9% INJ 10 ML SYR IV SCH ×3 (05:48→21:16)
[2016-11-18] MEDS: PERCOCET 5MG/325MG TAB PO PRN ×3 (05:48→21:16)
[2016-11-18 06:00] VITALS: BP 125/56
[2016-11-18 06:16] LABS: BASO % 0.2 % (0.0-1.0); EOS # 0.1 K/mm3 (0.0-0.50); EOS % 1.1 % (0.0-3.0); LARGE UNSTAINED CELL # 0.4 K/mm3 (0.0-0.4); LARGE UNSTAINED CELL % 3.8 % (0.0-4.0); LYMPH # 0.7 K/mm3 (1.5-4.5); LYMPH % 6.8 % (24.0-44.0); MEAN CORPUSCULAR HGB CONC 33.6 g/dl (32.0-36.5); MEAN CORPUSCULAR VOLUME 86.5 fl (80.0-96.0); MONO # 0.5 K/mm3 (0.0-0.8); MONO % 4.7 % (0.0-5.0); NEUTROPHILS # 8.6 K/mm3 (1.8-7.7); NEUTROPHILS % 83.4 % (36.0-66.0); PLATELET COUNT, AUTOMATED 275 k/mm3 (150-450); RED CELL DISTRIBUTION WIDTH 14.6 % (11.5-14.5); WHITE BLOOD COUNT 10.3 K/mm3 (4.0-10.0)
[2016-11-18 06:17] LABS: INR 1.45
[2016-11-18 06:29] LABS: ANION GAP 7 MEQ/L (8-16); BLOOD UREA NITROGEN 9 MG/DL (7-18); CALCIUM LEVEL 8.5 MG/DL (8.8-10.2); CARBON DIOXIDE LEVEL 34 MEQ/L (21-32); CHLORIDE LEVEL 101 MEQ/L (98-107); CREATININE FOR GFR 0.36 MG/DL (0.55-1.02); GLOMERULAR FILTRATION RATE > 60.0 (>45); GLUCOSE, FASTING 103 MG/DL (80-110); SODIUM LEVEL 142 MEQ/L (136-145)
[2016-11-18] MEDS: MOM 30ML SUSPENSION UDC PO SCH (08:33)
[2016-11-18] MEDS: VITAMIN D (CHOLECALCIFEROL) 400 INTERNATIONAL UNITS TAB PO SCH (08:33)
[2016-11-18] MEDS: CYANOCOBALAMIN 500 MCG TAB PO SCH (08:33)
[2016-11-18] MEDS: CALCIUM/VITAMIN D 500 MG TAB PO SCH (08:33)
[2016-11-18] MEDS: LIDOCAINE 5% (LIDODERM) PATCH TD SCH (08:33)
[2016-11-18] MEDS: SENOKOT S TAB PO SCH ×2 (08:33→21:15)
[2016-11-18] MEDS: OMEPRAZOLE 20 MG CAP PO SCH (08:33)
[2016-11-18] MEDS: ASCORBIC ACID 500 MG TAB PO SCH (08:33)
[2016-11-18] MEDS: MIRALAX *UNIT DOSE* 17GM PACKET PO SCH (08:33)
[2016-11-18] MEDS: DULoxetine 30 MG CAP (CYMBALTA) PO SCH (08:33)
[2016-11-18] MEDS: MULTIVITAMINS/MINERALS THERAP 1 TAB PO SCH (08:33)
[2016-11-18] MEDS: SODIUM CHLORIDE NASAL 0.65% SPRAY BTL (OCEAN) SCH ×2 (08:34→21:18)
[2016-11-18] MEDS: MUPIROCIN 2% OINT 22 GM TUBE TOP SCH ×3 (08:34→21:00)
[2016-11-18] MEDS: ATENOLOL 25 MG TAB PO SCH (08:34)
--- NOTE | 2016-11-18 13:58 | IPNPDOC ---
Text Note Date of Service The patient was seen on 11/18/16. NOTE Subjective: Patient feels well. Had pain at the surgical site last night. No CP/ SOB/palpitations. Objective: Vitals: (see below) General: No acute distress, laying comfortably in bed. HEENT: Moist mucous membranes. Neck: No JVD or lymphadenopathy Cardiac: RRR, No murmurs Pulm: Clear to auscultation b/l. No wheezing, rhonchi Abd: NT/ND + BS Ext: No edema or cyanosis. Right knee in bandage with NIELS draining serosanguineous drainage. No signs of erythema. RUE PICC line in place. No bleeding. Distal pulses intact. Labs (see below) Images: Assessment/Plan 1. Suspected right knee infection status post right total knee arthroplasty in November 2015. Management per primary team. Patient received antibiotic spacer. Dr. León contacted by Dr. Leslie recommendations for vancomycin postop. Defer antibiotics (Vanc/Cipro) per ID - 6 weeks Abx. PICC Placed. pain management per primary team. 2. Hypertension- controlled continue home meds 3. Hyperlipidemia- continue statin 4. GERD -continue Prilosec 5. Depression- continue meds DVT prophy: Per orthopedics VS,Kar, I+O VS, Kar, I+O Laboratory Tests 11/18/16 05:53 Red Blood Count 3.05 L, Mean Corpuscular Volume 86.5, Mean Corpuscular Hemoglobin 29.0, Mean Corpuscular Hemoglobin Concent 33.6, Red Cell Distribution Width 14.6 H, Neutrophils (%) (Auto) 83.4 H, Lymphocytes (%) (Auto ) 6.8 L, Monocytes (%) (Auto) 4.7, Eosinophils (%) (Auto) 1.1, Basophils (%) ( Auto) 0.2, Neutrophils # (Auto) 8.6 H, Lymphocytes # (Auto) 0.7 L, Monocytes # ( Auto) 0.5, Eosinophils # (Auto) 0.1, Basophils # (Auto) 0.0, Calcium Level 8.5 L Vital Signs Date Time Temp Pulse Resp B/P (MAP) Pulse Ox O2 Delivery O2 Flow Rate FiO2 11/18/16 13:50 18 11/18/16 08:34 78 125/56 11/18/16 08:00 Room Air 9/23/17 06:00 98.8 96 11/17/16 06:00 2.0 I&O- Last 24 Hours up to 6 AM 11/19/16 06:00 Intake Total 840 ml Output Total 950 ml Balance -110 ml LIONEL ADAMS MD Nov 18, 2016 13:58
[2016-11-18 14:00] VITALS: BP 110/57
[2016-11-18] MEDS ORDERED: WARFARIN SOD 5 MG TAB PO ONE (17:00)
[2016-11-18] MEDS: **NOTE PATIENT COMMENT** MISC XX SCH ×2 (21:00→21:19)
[2016-11-18] MEDS: GABAPENTIN 300 MG CAP PO SCH (21:15)
[2016-11-18] MEDS: ATORVASTATIN 20 MG TAB PO SCH (21:15)
[2016-11-18 22:00] VITALS: BP 118/58
--- NOTE | 2016-11-18 22:51 | PHACANCOPD ---
PHARMACY VANCOMYCIN DOSING Pt Demographics Demographics Patient Age:66 , Weight:86.180 , Gender: female Adjusted Body Weight Date: 11/16/16, Adjusted Body Weight: Kg Vancomycin Vancomycin indication: osteomyelitis Vancomycin Target Ranges: 15-20 mcg/ml Vancomycin Load Y/N: Yes Load Dose Date Time Vancomycin Load Dose: 1500mg Date: 11/16 Time: 1000 Vancomycin Dose Date: 11/16/16. Current Vancomycin Dose: [1000mg iv q12h @2200] Intermittent Dosing?: No Labs Micro Microbiology 11/15/16 Surgical Biopsy Culture - Final, Complete 11/15/16 Wound Culture - Final, Complete 11/15/16 Anaerobic Culture - Final, Complete 11/15/16 Wound Culture - Final, Complete 11/15/16 Anaerobic Culture - Final, Complete 11/15/16 Fungal Smear, Received Pending 11/15/16 Fungal Culture, Received Pending Creatinine Clearance Date:11/16/16. Creatinine Clearance: [>100ml/min]. Pending Labs vanco trough 11/17 @2100 Assessment and Plan Maintaining Current Dose?: Yes Reason for dose change: No Dose Change Pharmacist Note Pharmacist Note 11/18/16: Tonight's trough resulted at 13.2mcg/ml. The patient will receive another 2g dose tonight, and will continue a maintenance regimen of 1g IV Q8H. Scr and output remain stable. Another follow-up trough is scheduled to be drawn tomorrow, 11/19/16, at 1300 to ensure the patient is achieving goal therapeutic levels. We will continue to monitor and make further dose adjustments if needed. 11/17/16: Trough today resulted at 7.6mg/ml. The patient will receive a 2g loading dose tonight, followed by a maintenance regimen of 1g IV Q8H for the treatment of her right knee prosthetic joint infection. A follow-up trough is scheduled to be drawn tomorrow, 11/18/16, at 2100 - aiming for a goal trough of 15-20mcg/ml. We will continue to monitor and make further dose adjustments if needed. Date: 11/16/16. Pharmacist note: Vanco 1500mg loading dose followed 12 hours later with vanco 1gm q12h was implemented for the post op treatment of septic joint. Cultures are pending. Trough is scheduled after 3 doses (11/17 @ 2100) . Continue to monitor renal function and adjust dose as needed. SHANTA DAVIS PHARMACY Nov 18, 2016 22:51
[2016-11-18] MEDS ORDERED: VANCOMYCIN HCL 1,000 MG, VIAL MATE ADAPTER 1 EACH in D5W 250 ML IV ONE (23:00)
[2016-11-19] MEDS: SODIUM CHLORIDE 0.9% INJ 10 ML SYR IV PRN ×4 (00:45→22:56)
[2016-11-19] MEDS: CIPROFLOXACIN 250 MG TAB PO SCH ×2 (05:46→17:44)
[2016-11-19] MEDS: VANCOMYCIN HCL 1,000 MG, VIAL MATE ADAPTER 1 EACH in D5W 250 ML IV SCH ×3 (05:49→21:17)
[2016-11-19 06:00] VITALS: BP 117/59
[2016-11-19 06:26] LABS: BASO % 0.2 % (0.0-1.0); EOS # 0.2 K/mm3 (0.0-0.50); EOS % 2.1 % (0.0-3.0); LARGE UNSTAINED CELL # 0.3 K/mm3 (0.0-0.4); LARGE UNSTAINED CELL % 3.6 % (0.0-4.0); LYMPH # 0.9 K/mm3 (1.5-4.5); LYMPH % 11.5 % (24.0-44.0); MEAN CORPUSCULAR HEMOGLOBIN 28.7 pg (27.0-33.0); MEAN CORPUSCULAR HGB CONC 33.3 g/dl (32.0-36.5); MEAN CORPUSCULAR VOLUME 86.3 fl (80.0-96.0); MONO # 0.5 K/mm3 (0.0-0.8); MONO % 6.3 % (0.0-5.0); NEUTROPHILS # 6.1 K/mm3 (1.8-7.7); NEUTROPHILS % 76.3 % (36.0-66.0); PLATELET COUNT, AUTOMATED 318 k/mm3 (150-450); RED CELL DISTRIBUTION WIDTH 14.9 % (11.5-14.5)
[2016-11-19 06:34] LABS: ANION GAP 8 MEQ/L (8-16); BLOOD UREA NITROGEN 9 MG/DL (7-18); CALCIUM LEVEL 8.4 MG/DL (8.8-10.2); CARBON DIOXIDE LEVEL 33 MEQ/L (21-32); CHLORIDE LEVEL 100 MEQ/L (98-107); CREATININE FOR GFR 0.41 MG/DL (0.55-1.02); GLOMERULAR FILTRATION RATE > 60.0 (>45); GLUCOSE, FASTING 94 MG/DL (80-110); POTASSIUM SERUM 4.2 MEQ/L (3.5-5.1); SODIUM LEVEL 141 MEQ/L (136-145)
[2016-11-19 08:09] LABS: INR 1.53
[2016-11-19] MEDS: OMEPRAZOLE 20 MG CAP PO SCH (08:18)
[2016-11-19] MEDS: MULTIVITAMINS/MINERALS THERAP 1 TAB PO SCH (08:18)
[2016-11-19] MEDS: VITAMIN D (CHOLECALCIFEROL) 400 INTERNATIONAL UNITS TAB PO SCH (08:18)
[2016-11-19] MEDS: ASCORBIC ACID 500 MG TAB PO SCH (08:18)
[2016-11-19] MEDS: DULoxetine 30 MG CAP (CYMBALTA) PO SCH (08:18)
[2016-11-19] MEDS: CYANOCOBALAMIN 500 MCG TAB PO SCH (08:18)
[2016-11-19] MEDS: CALCIUM/VITAMIN D 500 MG TAB PO SCH (08:19)
[2016-11-19] MEDS: ATENOLOL 25 MG TAB PO SCH (08:20)
[2016-11-19] MEDS: LIDOCAINE 5% (LIDODERM) PATCH TD SCH (08:21)
[2016-11-19] MEDS: MUPIROCIN 2% OINT 22 GM TUBE TOP SCH ×3 (08:21→21:00)
[2016-11-19] MEDS: SODIUM CHLORIDE NASAL 0.65% SPRAY BTL (OCEAN) SCH ×2 (08:21→21:19)
[2016-11-19] MEDS: PERCOCET 5MG/325MG TAB PO PRN ×3 (08:21→21:18)
[2016-11-19] MEDS: SENOKOT S TAB PO SCH ×2 (08:22→21:18)
[2016-11-19] MEDS: MOM 30ML SUSPENSION UDC PO SCH (08:22)
[2016-11-19] MEDS: MIRALAX *UNIT DOSE* 17GM PACKET PO SCH (08:22)
[2016-11-19 14:00] VITALS: BP 104/51
--- NOTE | 2016-11-19 14:06 | IPNPDOC ---
Text Note Date of Service The patient was seen on 11/19/16. NOTE Subjective: Patient feels well. No acute changes overnight. Objective: Vitals: (see below) General: No acute distress, laying comfortably in bed. HEENT: Moist mucous membranes. Neck: No JVD or lymphadenopathy Cardiac: RRR, No murmurs Pulm: Clear to auscultation b/l. No wheezing, rhonchi Abd: NT/ND + BS Ext: No edema or cyanosis. Right knee in bandage with NIELS draining serosanguineous drainage. No signs of erythema. RUE PICC line in place. No bleeding. Distal pulses intact. Labs (see below) Images: Assessment/Plan 1. Suspected right knee infection status post right total knee arthroplasty in November 2015. Management per primary team. Patient received antibiotic spacer. Dr. León contacted by Dr. Leslie recommendations for vancomycin postop. Defer antibiotics (Vanc/Cipro) per ID - 6 weeks Abx. PICC Placed. pain management per primary team. 2. Hypertension- controlled continue home meds 3. Hyperlipidemia- continue statin 4. GERD -continue Prilosec 5. Depression- continue meds DVT prophy: Per orthopedics VS,Kar, I+O VS, Kar, I+O Laboratory Tests 11/19/16 05:42 Red Blood Count 2.96 L, Mean Corpuscular Volume 86.3, Mean Corpuscular Hemoglobin 28.7, Mean Corpuscular Hemoglobin Concent 33.3, Red Cell Distribution Width 14.9 H, Neutrophils (%) (Auto) 76.3 H, Lymphocytes (%) (Auto ) 11.5 L, Monocytes (%) (Auto) 6.3 H, Eosinophils (%) (Auto) 2.1, Basophils (%) (Auto) 0.2, Neutrophils # (Auto) 6.1, Lymphocytes # (Auto) 0.9 L, Monocytes # ( Auto) 0.5, Eosinophils # (Auto) 0.2, Basophils # (Auto) 0.0, Calcium Level 8.4 L Vital Signs Date Time Temp Pulse Resp B/P (MAP) Pulse Ox O2 Delivery O2 Flow Rate FiO2 11/19/16 08:51 20 11/19/16 08:20 76 125/59 11/19/16 08:20 Room Air 11/19/16 06:00 99.7 93 9/22/17 06:00 2.0 I&O- Last 24 Hours up to 6 AM 11/20/16 06:00 Intake Total 360 ml Output Total 500 ml Balance -140 ml LIONEL ADAMS MD Nov 19, 2016 14:06
[2016-11-19] MEDS ORDERED: WARFARIN SOD 3 MG TAB PO ONE (17:00)
[2016-11-19] MEDS: SODIUM CHLORIDE 0.9% INJ 10 ML SYR IV SCH (17:44)
[2016-11-19] MEDS: GABAPENTIN 300 MG CAP PO SCH (21:17)
[2016-11-19] MEDS: ATORVASTATIN 20 MG TAB PO SCH (21:19)
[2016-11-19 22:00] VITALS: BP 126/64
[2016-11-20] MEDS: SODIUM CHLORIDE 0.9% INJ 10 ML SYR IV SCH (05:36)
[2016-11-20] MEDS: CIPROFLOXACIN 250 MG TAB PO SCH (05:36)
[2016-11-20 05:57] LABS: BASO % 0.3 % (0.0-1.0); EOS # 0.2 K/mm3 (0.0-0.50); EOS % 3.1 % (0.0-3.0); LARGE UNSTAINED CELL # 0.2 K/mm3 (0.0-0.4); LARGE UNSTAINED CELL % 3.1 % (0.0-4.0); LYMPH # 0.9 K/mm3 (1.5-4.5); LYMPH % 13.3 % (24.0-44.0); MEAN CORPUSCULAR HEMOGLOBIN 28.9 pg (27.0-33.0); MEAN CORPUSCULAR HGB CONC 33.3 g/dl (32.0-36.5); MEAN CORPUSCULAR VOLUME 86.7 fl (80.0-96.0); MONO # 0.5 K/mm3 (0.0-0.8); MONO % 7.8 % (0.0-5.0); NEUTROPHILS # 4.9 K/mm3 (1.8-7.7); NEUTROPHILS % 72.4 % (36.0-66.0); PLATELET COUNT, AUTOMATED 347 k/mm3 (150-450); RED CELL DISTRIBUTION WIDTH 14.6 % (11.5-14.5); WHITE BLOOD COUNT 6.8 K/mm3 (4.0-10.0)
[2016-11-20 06:00] VITALS: BP 132/72
[2016-11-20 06:13] LABS: ANION GAP 8 MEQ/L (8-16); BLOOD UREA NITROGEN 10 MG/DL (7-18); CALCIUM LEVEL 7.8 MG/DL (8.8-10.2); CARBON DIOXIDE LEVEL 32 MEQ/L (21-32); CHLORIDE LEVEL 101 MEQ/L (98-107); CREATININE FOR GFR 0.41 MG/DL (0.55-1.02); GLOMERULAR FILTRATION RATE > 60.0 (>45); GLUCOSE, FASTING 101 MG/DL (80-110); POTASSIUM SERUM 3.9 MEQ/L (3.5-5.1); SODIUM LEVEL 141 MEQ/L (136-145)
[2016-11-20] MEDS: VANCOMYCIN HCL 1,000 MG, VIAL MATE ADAPTER 1 EACH in D5W 250 ML IV SCH ×2 (06:34→13:30)
[2016-11-20 07:14] LABS: INR 1.64
[2016-11-20 08:00] VITALS: BP 124/63
[2016-11-20] MEDS ORDERED: COUM2.5T17 PO (08:00)
[2016-11-20] MEDS ORDERED: PERC5TAB12 PO (08:00)
[2016-11-20] MEDS: MOM 30ML SUSPENSION UDC PO SCH (08:20)
[2016-11-20] MEDS: CYANOCOBALAMIN 500 MCG TAB PO SCH (08:20)
[2016-11-20] MEDS: MIRALAX *UNIT DOSE* 17GM PACKET PO SCH (08:20)
[2016-11-20] MEDS: OMEPRAZOLE 20 MG CAP PO SCH (08:21)
[2016-11-20] MEDS: CALCIUM/VITAMIN D 500 MG TAB PO SCH (08:21)
[2016-11-20] MEDS: DULoxetine 30 MG CAP (CYMBALTA) PO SCH (08:21)
[2016-11-20] MEDS: MULTIVITAMINS/MINERALS THERAP 1 TAB PO SCH (08:22)
[2016-11-20] MEDS: SENOKOT S TAB PO SCH (08:22)
[2016-11-20] MEDS: ASCORBIC ACID 500 MG TAB PO SCH (08:22)
[2016-11-20] MEDS: LIDOCAINE 5% (LIDODERM) PATCH TD SCH (08:23)
[2016-11-20] MEDS: SODIUM CHLORIDE NASAL 0.65% SPRAY BTL (OCEAN) SCH (08:24)
[2016-11-20] MEDS: MUPIROCIN 2% OINT 22 GM TUBE TOP SCH (08:24)
[2016-11-20 08:25] VITALS: BP 124/63
[2016-11-20] MEDS: ATENOLOL 25 MG TAB PO SCH (08:25)
[2016-11-20] MEDS: VITAMIN D (CHOLECALCIFEROL) 400 INTERNATIONAL UNITS TAB PO SCH (10:07)
[2016-11-20] MEDS: PERCOCET 5MG/325MG TAB PO PRN (10:07)
[2016-11-20 14:00] VITALS: BP 112/59
--- NOTE | 2016-11-20 16:15 | IPNPDOC ---
Text Note Date of Service The patient was seen on 11/20/16. NOTE Subjective: Patient feels well. No acute changes overnight. Objective: Vitals: (see below) General: No acute distress, laying comfortably in bed. HEENT: Moist mucous membranes. Neck: No JVD or lymphadenopathy Cardiac: RRR, No murmurs Pulm: Clear to auscultation b/l. No wheezing, rhonchi Abd: NT/ND + BS Ext: No edema or cyanosis. Right knee in bandage with NIELS draining serosanguineous drainage. No signs of erythema. RUE PICC line in place. No bleeding. Distal pulses intact. Labs (see below) Images: Assessment/Plan 1. Suspected right knee infection status post right total knee arthroplasty in November 2015. Management per primary team. Patient received antibiotic spacer. Dr. León contacted by Dr. Leslie recommendations for vancomycin postop. Defer antibiotics (Vanc/Cipro) per ID - 6 weeks Abx. PICC Placed. pain management per primary team. 2. Hypertension- controlled continue home meds 3. Hyperlipidemia- continue statin 4. GERD -continue Prilosec 5. Depression- continue meds DVT prophy: Per orthopedics VS,Kar, I+O VS, Kar, I+O Laboratory Tests 11/20/16 05:42 Red Blood Count 2.93 L, Mean Corpuscular Volume 86.7, Mean Corpuscular Hemoglobin 28.9, Mean Corpuscular Hemoglobin Concent 33.3, Red Cell Distribution Width 14.6 H, Neutrophils (%) (Auto) 72.4 H, Lymphocytes (%) (Auto ) 13.3 L, Monocytes (%) (Auto) 7.8 H, Eosinophils (%) (Auto) 3.1 H, Basophils (% ) (Auto) 0.3, Neutrophils # (Auto) 4.9, Lymphocytes # (Auto) 0.9 L, Monocytes # (Auto) 0.5, Eosinophils # (Auto) 0.2, Basophils # (Auto) 0.0, Calcium Level 7.8 L Vital Signs Date Time Temp Pulse Resp B/P (MAP) Pulse Ox O2 Delivery O2 Flow Rate FiO2 11/20/16 14:00 97.4 61 18 112/59 (76) 93 Room Air 11/17/16 06:00 2.0 I&O- Last 24 Hours up to 6 AM 11/21/16 06:00 Intake Total 840 ml Balance 840 ml LIONEL ADAMS MD Nov 20, 2016 16:15
--- NOTE | 2016-11-22 11:42 | DSES ---
DATE OF ADMISSION: 11/15/2016 DATE OF DISCHARGE: 11/20/2016 ADMISSION DIAGNOSIS: Suspected right total knee arthroplasty infection. OTHER DIAGNOSES: Hypertension. Elevated cholesterol. Gastric reflux disease. Depression. DISCHARGE DIAGNOSIS: Suspected infected right total knee arthroplasty with loosening status post resection arthroplasty, right total knee arthroplasty and placement antibiotic spacers, Prostalac and antibiotic beads. OPERATION PERFORMED: Resection arthroplasty of right total knee arthroplasty and placement of antibiotic cement spacer, Prostalac and antibiotic beads. HISTORY: This is a 66-year-old female patient who approximately 1 year ago underwent a right total knee arthroplasty by Dr. Koo. Over the last few months, she has developed pain and swelling in that knee. Numerous studies were completed consistent with loosening and questionable infection. She elected surgical treatment of her continued symptoms and was admitted for the above listed procedure. HOSPITAL COURSE: The patient was admitted on day of surgery and underwent the above listed procedure. It was well tolerated by the patient without complications. During her hospital stay, her pain was controlled. She did receive a PICC line and recommendations infectious disease were for 6 weeks of IV antibiotics. On day of discharge, she was doing well, weightbearing as tolerated on her right lower extremity. She was given instructions to include but not limited to wound monitoring and activity limitations and the use of her antibiotics. She will follow up in our office in 10-14 days for surgical followup. She will resume her preoperative medications and diet. She will use oral pain medications for pain control. Please refer to medical record for further details. cc: Moses Leslie MD
== END 2016-11-20 16:45 | disposition home health service (06) | DRG 320 ==
LOC: M OR 12:53 → M MS5PR 19:25
PROVIDERS: ADMIT Orthopaedic Surgery; ATTEND Orthopaedic Surgery
PROC: 0SHC08Z Insertion of Spacer into Right Knee Joint, Open Approach (ICD-10-PCS; 2016-11-15)
PROC: 0SPC0JZ Removal of Synthetic Substitute from Right Knee Joint, Open Approach (ICD-10-PCS; principal; 2016-11-15 15:00)
PROC: 02HV33Z Insertion of Infusion Device into Superior Vena Cava, Percutaneous Approach (ICD-10-PCS; 2016-11-17)
DX: T84.53XA Infection and inflammatory reaction due to internal right knee prosthesis, initial encounter (principal); T84.032A Mechanical loosening of internal right knee prosthetic joint, initial encounter; I10 Essential (primary) hypertension; E78.00 Pure hypercholesterolemia, unspecified; K21.9 Gastro-esophageal reflux disease without esophagitis; F32.9 Major depressive disorder, single episode, unspecified; Z87.891 Personal history of nicotine dependence; Z79.899 Other long term (current) drug therapy; E78.5 Hyperlipidemia, unspecified; Y83.1 Surgical operation with implant of artificial internal device as the cause of abnormal reaction of the patient, or of later complication, without mention of misadventure at the time of the procedure

== ENCOUNTER → 2016-12-07 | Outpatient (REF) | payer OTHER ==
[2016-12-07 14:31] LABS: INR 1.3
== END ==
LOC: M SHH 11:53
PROVIDERS: ATTEND Nurse Practitioner Family
DX: Z51.81 Encounter for therapeutic drug level monitoring (principal); Z79.01 Long term (current) use of anticoagulants

== ENCOUNTER → 2016-12-11 | Outpatient (REF) | payer OTHER ==
[2016-12-11 13:20] LABS: INR 1.97
== END ==
LOC: M SHH 12:07
PROVIDERS: ATTEND Nurse Practitioner Family
DX: Z79.01 Long term (current) use of anticoagulants (principal)

== ENCOUNTER → 2017-01-08 | Outpatient (REF) | payer OTHER | LOC: M LAB REF 15:15 | PROVIDERS: ATTEND Orthopaedic Surgery | DX: T84.032D Mechanical loosening of internal right knee prosthetic joint, subsequent encounter (principal) ==

== ENCOUNTER → 2017-02-21 | Outpatient (CLI) | payer OTHER ==
[~2017-02-21] MED LIST changes: +ASPI81TA85 PO
[2017-02-21 12:07] LABS: MEAN CORPUSCULAR HGB CONC 31.8 g/dl (32.0-36.5); MEAN CORPUSCULAR VOLUME 81.7 fl (80.0-96.0); PLATELET COUNT, AUTOMATED 296 10^3/uL (150-450); RED CELL DISTRIBUTION WIDTH 16.3 % (11.5-14.5); WHITE BLOOD COUNT 6.5 10^3/uL (4.0-10.0)
[2017-02-21 12:17] LABS: INR 0.97
[2017-02-21 12:27] LABS: ERYTHROCYTE SEDIMENTATION RATE 10 mm/hr (0-30)
[2017-02-21 12:37] LABS: ALBUMIN/GLOBULIN RATIO 1.25 (1.00-1.93); ALKALINE PHOSPHATASE 107 U/L (45-117); ALT/SGPT 31 U/L (12-78); ANION GAP 5 MEQ/L (8-16); AST/SGOT 26 U/L (7-37); BILIRUBIN,TOTAL 0.4 MG/DL (0.2-1.0); BLOOD UREA NITROGEN 13 MG/DL (7-18); CALCIUM LEVEL 9.2 MG/DL (8.8-10.2); CARBON DIOXIDE LEVEL 33 MEQ/L (21-32); CHLORIDE LEVEL 102 MEQ/L (98-107); CREATININE FOR GFR 0.63 MG/DL (0.55-1.02); GLOMERULAR FILTRATION RATE > 60.0 (>45); GLUCOSE, FASTING 89 MG/DL (80-110); POTASSIUM SERUM 4.4 MEQ/L (3.5-5.1); SODIUM LEVEL 140 MEQ/L (136-145); TOTAL PROTEIN 7.2 GM/DL (6.4-8.2)
--- NOTE | 2017-02-21 17:56 | ECGEPIP ---
Stationary ECG Study [facility] Test Date: 2017-02-21 Pat Name: CAMILLE SOLORZANO Department: Room: - Gender: F Territory Account Representative: ELVIE : 1950 Requested By: Moses Leslie Order Number: [id number] Reading MD: Kareem Iverson Measurements Intervals [place] Rate: 63 P: 44 WA: 184 QRS: 25 QRSD: 83 T: 56 QT: 383 QTc: 394 Interpretive Statements Normal sinus rhythm. Delayed anterior R-wave progression Minor repolarization abnormalities No significant change since prior tracing of 11/10/2016 Electronically Signed On 02-21-2017 17:56:02 EST by Kareem Iverson
== END ==
LOC: M ADMPAT 10:11
PROVIDERS: ATTEND Orthopaedic Surgery
DX: Z01.818 Encounter for other preprocedural examination (principal); T84.092A Other mechanical complication of internal right knee prosthesis, initial encounter; R94.31 Abnormal electrocardiogram [ECG] [EKG]; Z96.9 Presence of functional implant, unspecified

== ENCOUNTER 2017-02-28 06:09 | Inpatient (IN) | payer OTHER ==
[2017-02-28] MEDS: LR 1,000 ML IV ×3 (06:54→13:30)
[2017-02-28] MEDS ORDERED: MIDAZOLAM INJ 2 MG/2 ML VIAL (J2250) As Ordered ×3 (07:07→08:01)
[2017-02-28] MEDS ORDERED: fentaNYL 100 MCG/2 ML INJECTION (J3010) As Ordered ×2 (07:07→07:09)
[2017-02-28] MEDS: fentaNYL 100 MCG/2 ML INJECTION (J3010) IV (07:22)
[2017-02-28] MEDS: MIDAZOLAM INJ 2 MG/2 ML VIAL (J2250) IV (07:22)
[2017-02-28] MEDS: EPINEPHrine INJ 1 MG/ML 1ML AMP As Ordered ×2 (07:51→09:15)
[2017-02-28] MEDS: ceFAZolin 1GM INJ (J0690 PER 500MG) As Ordered (08:15)
[2017-02-28] MEDS ORDERED: PROPOFOL 200 MG/20 ML VIAL As Ordered ×2 (09:07→09:24)
[2017-02-28] MEDS ORDERED: ROPIvacaine 0.5% 30 ML INJECTION (J2795 PER 1MG) (09:08)
[2017-02-28] MEDS: TRANEXAMIC ACID 100 MG/ML 10ML VIAL As Ordered (09:15)
[2017-02-28] MEDS ORDERED: KETOROLAC 60 MG/2 ML VIAL (J1885) As Ordered (09:28)
[2017-02-28] MEDS ORDERED: ONDANSETRON 4MG/2ML VIAL (J2405) As Ordered (09:28)
[2017-02-28] MEDS ORDERED: dexameTHASONE 4 MG/ML 1ML VIAL (J1100) As Ordered (09:28)
[2017-02-28] MEDS: BUPIVACAINE LIPOSOME/PF 1.3% 20 ML VIAL (13.3MG/ML)(EXPAREL) As Ordered (09:39)
[2017-02-28] MEDS ORDERED: MORPHINE 1MG/ML IN 0.9% NACL 100ML IV BAG As Ordered (10:19)
[2017-02-28] MEDS: MORPHINE 1MG/ML IN 0.9% NACL 100ML IV BAG IV (10:45)
[2017-02-28] MEDS: EPIDURAL/PCA KEYS XX (10:45)
[2017-02-28] MEDS ORDERED: ACETAMINOPHEN TAB 650MG DOSE (2X325MG) PO (11:30)
[2017-02-28] MEDS ORDERED: diphenhydrAMINE INJ 50MG/ML VIAL (J1200) IV (11:30)
[2017-02-28] MEDS ORDERED: FLEET ENEMA PR (11:30)
[2017-02-28] MEDS ORDERED: MORPHINE 10 MG/ML 1ML VIAL IV (11:30)
[2017-02-28] MEDS ORDERED: fentaNYL 100 MCG/2 ML INJECTION (J3010) IV (11:30)
[2017-02-28] MEDS ORDERED: NALBUPHINE HCL 10 MG/ML AMP (J2300) IV (11:30)
[2017-02-28] MEDS ORDERED: PERCOCET 5MG/325MG TAB PO ×2 (11:30→20:15)
[2017-02-28] MEDS ORDERED: NALOXONE INJ 0.4 MG/1 ML VIAL (J2310) IV (11:30)
[2017-02-28] MEDS ORDERED: ONDANSETRON 4MG/2ML VIAL (J2405) IV ×4 (11:30→20:15)
[2017-02-28] MEDS: ATORVASTATIN 20 MG TAB PO (14:35)
[2017-02-28] MEDS: WARFARIN SOD 5 MG TAB PO (16:54)
[2017-02-28] MEDS ORDERED: MORPHINE 4 MG/ML 1ML SYRINGE IV (20:15)
[2017-02-28] MEDS: PERCOCET 5MG/325MG TAB PO (21:09)
[2017-03-01] MEDS: LR 1,000 ML IV (00:50)
[2017-03-01] MEDS: PERCOCET 5MG/325MG TAB PO ×6 (01:22→23:10)
[2017-03-01 06:37] LABS: HEMATOCRIT 28.3 % (36.0-47.0); MEAN CORPUSCULAR HEMOGLOBIN 26.5 pg (27.0-33.0); MEAN CORPUSCULAR HGB CONC 31.8 g/dl (32.0-36.5); MEAN CORPUSCULAR VOLUME 83.2 fl (80.0-96.0); PLATELET COUNT, AUTOMATED 216 10^3/uL (150-450); RED CELL DISTRIBUTION WIDTH 17.1 % (11.5-14.5); WHITE BLOOD COUNT 10.9 10^3/uL (4.0-10.0)
[2017-03-01 07:00] LABS: INR 1.18; PROTHROMBIN TIME 15.2 SECONDS (12.4-14.5)
[2017-03-01] MEDS: ATORVASTATIN 20 MG TAB PO (09:04)
[2017-03-01] MEDS: METOPROLOL SUCC *XL* 25MG TAB (TopROL *XL*) PO (09:04)
[2017-03-01] MEDS: DULoxetine 30 MG CAP (CYMBALTA) PO (09:05)
[2017-03-01] MEDS: OMEPRAZOLE 20 MG CAP PO (09:05)
[2017-03-01] MEDS: SENOKOT S TAB PO ×2 (09:05→20:25)
[2017-03-01] MEDS: MOM 30ML SUSPENSION UDC PO (09:05)
[2017-03-01] MEDS: MIRALAX *UNIT DOSE* 17GM PACKET PO (09:05)
[2017-03-01] MEDS: WARFARIN SOD 3 MG TAB PO (18:10)
[2017-03-01] MEDS: GABAPENTIN 300 MG CAP PO (20:25)
[2017-03-02] MEDS: PERCOCET 5MG/325MG TAB PO ×2 (05:05→11:06)
[2017-03-02 06:43] LABS: HEMATOCRIT 28.4 % (36.0-47.0); HEMOGLOBIN 8.8 g/dl (12.0-16.0); MEAN CORPUSCULAR HEMOGLOBIN 25.6 pg (27.0-33.0); MEAN CORPUSCULAR VOLUME 82.6 fl (80.0-96.0); PLATELET COUNT, AUTOMATED 201 10^3/uL (150-450); RED BLOOD COUNT 3.44 10^6/uL (4.00-5.40); RED CELL DISTRIBUTION WIDTH 17.2 % (11.5-14.5); WHITE BLOOD COUNT 8.4 10^3/uL (4.0-10.0)
[2017-03-02 06:53] LABS: INR 1.57; PROTHROMBIN TIME 19.2 SECONDS (12.4-14.5)
[2017-03-02] MEDS: SENOKOT S TAB PO (08:49)
[2017-03-02] MEDS: MOM 30ML SUSPENSION UDC PO (08:50)
[2017-03-02] MEDS: MIRALAX *UNIT DOSE* 17GM PACKET PO (08:50)
[2017-03-02] MEDS: METOPROLOL SUCC *XL* 25MG TAB (TopROL *XL*) PO (08:50)
[2017-03-02] MEDS: OMEPRAZOLE 20 MG CAP PO (08:50)
[2017-03-02] MEDS: ATORVASTATIN 20 MG TAB PO (08:50)
[2017-03-02] MEDS: DULoxetine 30 MG CAP (CYMBALTA) PO (08:50)
== END 2017-03-02 11:20 | disposition home health service (06) | DRG 302 ==
LOC: M OR 06:09 → M MS5PR 12:50
PROC: 0SRC0J9 Replacement of Right Knee Joint with Synthetic Substitute, Cemented, Open Approach (ICD-10-PCS; principal; 2017-02-28 07:30)
PROC: 0SPC0JZ Removal of Synthetic Substitute from Right Knee Joint, Open Approach (ICD-10-PCS; 2017-02-28 07:30)
DX: T84.53XA Infection and inflammatory reaction due to internal right knee prosthesis, initial encounter (principal); I10 Essential (primary) hypertension; E78.5 Hyperlipidemia, unspecified; F32.9 Major depressive disorder, single episode, unspecified; K21.9 Gastro-esophageal reflux disease without esophagitis; R01.1 Cardiac murmur, unspecified; Z87.891 Personal history of nicotine dependence; Y83.1 Surgical operation with implant of artificial internal device as the cause of abnormal reaction of the patient, or of later complication, without mention of misadventure at the time of the procedure; Z79.899 Other long term (current) drug therapy; Z79.82 Long term (current) use of aspirin

== ENCOUNTER → 2017-03-12 | Outpatient (REF) | payer OTHER ==
[2017-03-12 14:50] LABS: INR 1.73; PROTHROMBIN TIME 20.8 SECONDS (12.4-14.5)
== END ==
LOC: M SHH 14:14
DX: Z79.01 Long term (current) use of anticoagulants (principal)

== ENCOUNTER → 2017-03-15 | Outpatient (REF) | payer OTHER ==
[2017-03-15 13:24] LABS: INR 1.84; PROTHROMBIN TIME 21.8 SECONDS (12.4-14.5)
== END ==
LOC: M LABDRAW1 12:56
DX: Z79.01 Long term (current) use of anticoagulants (principal)
CPT/HCPCS: 85610

== ENCOUNTER → 2017-03-26 | Outpatient (REF) | payer OTHER ==
[2017-03-26 13:05] LABS: INR 1.91; PROTHROMBIN TIME 22.5 SECONDS (12.4-14.5)
== END ==
LOC: M SHH 12:34
DX: Z51.81 Encounter for therapeutic drug level monitoring (principal); Z79.01 Long term (current) use of anticoagulants

== ENCOUNTER → 2017-11-26 | Outpatient (REF) | payer OTHER ==
[2017-11-26 12:53] LABS: BASO % 0.5 % (0.0-1.0); EOS # 0.1 10^3/uL (0.0-0.50); EOS % 0.8 % (0.0-3.0); HEMATOCRIT 39.8 % (36.0-47.0); HEMOGLOBIN 12.3 g/dl (12.0-15.5); IMMATURE GRANULOCYTE % 0.7 % (0-3.0); MEAN CORPUSCULAR HEMOGLOBIN 26.5 pg (27.0-33.0); MEAN CORPUSCULAR HGB CONC 30.9 g/dl (32.0-36.5); MEAN CORPUSCULAR VOLUME 85.6 fl (80.0-96.0); MONO # 0.7 10^3/uL (0.0-0.8); MONO % 8.1 % (0.0-5.0); NEUTROPHILS # 6.8 10^3/uL (1.8-7.7); NEUTROPHILS % 78.9 % (36.0-66.0); PLATELET COUNT, AUTOMATED 366 10^3/uL (150-450); RED BLOOD COUNT 4.65 10^6/uL (4.00-5.40); RED CELL DISTRIBUTION WIDTH 15.1 % (11.5-14.5); WHITE BLOOD COUNT 8.6 10^3/uL (4.0-10.0)
[2017-11-26 13:25] LABS: C REACTIVE PROTEIN QUANTITATIV 0.37 MG/DL (0.00-0.30)
[2017-11-26 13:42] LABS: ERYTHROCYTE SEDIMENTATION RATE 10 mm/hr (0-30)
== END ==
LOC: M LABDRAW1 12:26
DX: Z96.651 Presence of right artificial knee joint (principal)
CPT/HCPCS: 86140

== ENCOUNTER → 2017-12-07 | Outpatient (CLI) | payer OTHER | LOC: M RAD 09:19 | DX: M25.561 Pain in right knee (principal); Z96.651 Presence of right artificial knee joint | CPT/HCPCS: 78315 ==

== ENCOUNTER → 2018-02-28 | Outpatient (REF) | payer OTHER ==
[~2018-02-28] MED LIST changes: -GABA-282 PO; +GABA-843 PO; +MILK120011 PO; -MILKSUS PO; +PERCOCET PO
[2018-02-28 14:03] LABS: HEMATOCRIT 39.8 % (36.0-47.0); HEMOGLOBIN 12.6 g/dl (12.0-15.5); MEAN CORPUSCULAR HEMOGLOBIN 26.5 pg (27.0-33.0); MEAN CORPUSCULAR HGB CONC 31.7 g/dl (32.0-36.5); MEAN CORPUSCULAR VOLUME 83.8 fl (80.0-96.0); PLATELET COUNT, AUTOMATED 287 10^3/uL (150-450); RED BLOOD COUNT 4.75 10^6/uL (4.00-5.40); WHITE BLOOD COUNT 7.4 10^3/uL (4.0-10.0)
[2018-02-28 16:14] LABS: ERYTHROCYTE SEDIMENTATION RATE 12 mm/hr (0-30)
== END ==
LOC: M LABDRAW1 12:59
PROVIDERS: ATTEND Orthopaedic Surgery
DX: M84.35 Stress fracture, pelvis and femur (principal)

== ENCOUNTER → 2018-05-03 | Outpatient (REF) | payer MEDICARE ==
[2018-05-03 13:50] LABS: BASO % 0.5 % (0.0-1.0); EOS # 0.1 10^3/uL (0.0-0.50); EOS % 1.5 % (0.0-3.0); HEMOGLOBIN 13.1 g/dl (12.0-15.5); LYMPH # 0.9 10^3/uL (1.5-4.5); MEAN CORPUSCULAR HEMOGLOBIN 28.2 pg (27.0-33.0); MEAN CORPUSCULAR VOLUME 88.4 fl (80.0-96.0); MONO # 0.6 10^3/uL (0.0-0.8); NEUTROPHILS % 74.5 % (36.0-66.0); PLATELET COUNT, AUTOMATED 269 10^3/uL (150-450); RED BLOOD COUNT 4.64 10^6/uL (4.00-5.40); WHITE BLOOD COUNT 6.7 10^3/uL (4.0-10.0)
[2018-05-03 14:25] LABS: CRYSTALS, BODY FLUID NONE SEEN (NONE SEEN); SOURCE, BODY FLUID CRYSTALS OTHER
[2018-05-03 14:29] LABS: BODY FLUID RHEUMATOID SCREEN NEGATIVE (NEGATIVE); MUCIN CLOT TEST NO CLOT (4+)
[2018-05-03 14:42] LABS: SOURCE, BODY FLUID OTHER; SYNOVIAL FLUID COLOR PINK (YELLOW)
[2018-05-03 14:51] LABS: ERYTHROCYTE SEDIMENTATION RATE 8 mm/hr (0-30)
[2018-05-03 15:07] LABS: SOURCE, BODY FLUID GLUCOSE OTHER; SOURCE, BODY FLUID URIC ACID OTHER; URIC ACID, BODY FLUID 1.4 MG/DL (NOT ESTABLISHED)
== END ==
LOC: M LABDRAW1 13:02
PROVIDERS: ATTEND Internal Medicine Endocrinology, Diabetes & Metabolism
DX: M84.35 Stress fracture, pelvis and femur (principal); Z79.01 Long term (current) use of anticoagulants

== ENCOUNTER → 2018-05-14 | Outpatient (REF) | payer MEDICARE ==
[2018-05-14 14:14] LABS: SOURCE, BODY FLUID RT KNEE; SYNOVIAL FLUID COLOR RED (YELLOW)
[2018-05-14 14:17] LABS: SOURCE, BODY FLUID GLUCOSE RT KNEE; SOURCE, BODY FLUID URIC ACID RT KNEE; URIC ACID, BODY FLUID 3.1 MG/DL (NOT ESTABLISHED)
[2018-05-14 14:18] LABS: CRYSTALS, BODY FLUID NONE SEEN (NONE SEEN); SOURCE, BODY FLUID CRYSTALS RT KNEE
[2018-05-14 14:49] LABS: BODY FLUID RHEUMATOID SCREEN NEGATIVE (NEGATIVE)
[2018-05-14 14:50] LABS: MUCIN CLOT TEST NO CLOT (4+)
== END ==
LOC: M LAB REF 13:39
PROVIDERS: ATTEND Orthopaedic Surgery
DX: M25.461 Effusion, right knee (principal)

== ENCOUNTER → 2018-05-27 | Outpatient (CLI) | payer MEDICARE ==
[~2018-05-27] MED LIST changes: +FISH7.5C PO; +OMEP20CA3 PO; +PROBCAP14 PO
[2018-05-27 10:52] LABS: BASO % 0.5 % (0.0-1.0); EOS # 0.1 10^3/uL (0.0-0.50); EOS % 2.2 % (0.0-3.0); HEMATOCRIT 40.6 % (36.0-47.0); HEMOGLOBIN 12.9 g/dl (12.0-15.5); LYMPH # 0.9 10^3/uL (1.5-4.5); MEAN CORPUSCULAR HEMOGLOBIN 28.7 pg (27.0-33.0); MEAN CORPUSCULAR HGB CONC 31.8 g/dl (32.0-36.5); MEAN CORPUSCULAR VOLUME 90.4 fl (80.0-96.0); MONO # 0.6 10^3/uL (0.0-0.8); MONO % 9.7 % (0.0-5.0); NEUTROPHILS # 4.6 10^3/uL (1.8-7.7); NEUTROPHILS % 73.3 % (36.0-66.0); PLATELET COUNT, AUTOMATED 256 10^3/uL (150-450); RED BLOOD COUNT 4.49 10^6/uL (4.00-5.40); WHITE BLOOD COUNT 6.3 10^3/uL (4.0-10.0)
[2018-05-27 11:53] LABS: ERYTHROCYTE SEDIMENTATION RATE 10 mm/hr (0-30)
== END ==
LOC: M LAB 09:33
PROVIDERS: ATTEND Internal Medicine Infectious Disease
DX: Z96.659 Presence of unspecified artificial knee joint (principal)

== ENCOUNTER → 2018-05-27 | Outpatient (CLI) | payer MEDICARE ==
--- NOTE | 2018-05-27 10:09 | ECGEPIP ---
Stationary ECG Study [facility] Test Date: 2018-05-27 Pat Name: CAMILLE SOLORZANO Department: Room: - Gender: F Facilities Assistant: FRED : 1950 Requested By: Moses Leslie Order Number: [id number] Reading MD: Melissa Rutledge Measurements Intervals [place] Rate: 56 P: 30 DC: 177 QRS: 0 QRSD: 89 T: 40 QT: 425 QTc: 412 Interpretive Statements SINUS BRADYCARDIA POSSIBLE ANTERIOR MYOCARDIAL INFARCTION, OF INDETERMINATE AGE PRWP RATE SLOWER C/W 02/21/17 Electronically Signed On 05-27-2018 10:08:49 EDT by Melissa Rutledge
--- NOTE | 2018-05-27 10:38 | REP ---
Chest x-ray: Two views. History: Stress fracture. Comparison chest x-ray: November 10, 2016. Findings: The lungs are symmetrically aerated and free of infiltrate. Heart is not enlarged. The air fibrosis in the left base. Pulmonary vasculature is not increased. No significant bony abnormality. Impression: No active disease. Electronically Signed by Kevin Dunn MD 05/27/2018 10:30 A
[2018-05-27 10:52] LABS: HEMATOCRIT 41.3 % (36.0-47.0); HEMOGLOBIN 12.8 g/dl (12.0-15.5); MEAN CORPUSCULAR HEMOGLOBIN 28.3 pg (27.0-33.0); MEAN CORPUSCULAR VOLUME 91.4 fl (80.0-96.0); PLATELET COUNT, AUTOMATED 242 10^3/uL (150-450); RED BLOOD COUNT 4.52 10^6/uL (4.00-5.40); WHITE BLOOD COUNT 6.2 10^3/uL (4.0-10.0)
[2018-05-27 11:04] LABS: INR 0.95; PROTHROMBIN TIME 12.8 SECONDS (12.1-14.4)
[2018-05-27 11:33] LABS: ALBUMIN 3.9 GM/DL (3.2-5.2); ALT/SGPT 25 U/L (12-78); BILIRUBIN,TOTAL 0.3 MG/DL (0.2-1.0); BLOOD UREA NITROGEN 19 MG/DL (7-18); CALCIUM LEVEL 8.9 MG/DL (8.8-10.2); CARBON DIOXIDE LEVEL 32 MEQ/L (21-32); CHLORIDE LEVEL 104 MEQ/L (98-107); CREATININE FOR GFR 0.61 MG/DL (0.55-1.30); GLOMERULAR FILTRATION RATE > 60.0 (>45); GLUCOSE, FASTING 86 MG/DL (70-100); POTASSIUM SERUM 4.6 MEQ/L (3.5-5.1); SODIUM LEVEL 140 MEQ/L (136-145); TOTAL PROTEIN 6.9 GM/DL (6.4-8.2)
[2018-05-27 11:53] LABS: ERYTHROCYTE SEDIMENTATION RATE 11 mm/hr (0-30)
== END ==
LOC: M LAB 09:27
PROVIDERS: ATTEND Orthopaedic Surgery
DX: Z01.818 Encounter for other preprocedural examination (principal); M84.35 Stress fracture, pelvis and femur; Z79.01 Long term (current) use of anticoagulants

== ENCOUNTER 2018-06-11 13:18 | Inpatient (IN) | payer MEDICARE ==
--- NOTE | 2018-06-04 10:44 | HPE ---
DATE OF ADMISSION: 06/11/2018 ATTENDING PHYSICIAN: Dr. Moses Leslie CHIEF COMPLAINT: Right knee pain and stiffness. HISTORY OF PRESENT ILLNESS: The patient is a pleasant 68-year-old female that has progressively worsening right knee pain and stiffness. The patient had a total knee arthroplasty done by Dr. Hayes zamarripa in 2015 and a resection done in October 2016 with a revision done in February 2017. She did very well for months after the revision surgery but then started having some pain mostly around her distal lateral thigh. The patient has been having to ambulate with a crutch due to her level of symptoms. She has been treated empirically with antibiotics and has had multiple joint aspirations. The patient was referred down to Dr. Turner at [facility] for a second opinion. Recommendation was that the femoral component was likely loose and likely that the tibial component could be preserved. There was also possibility of putting in a longer stem with possibly cementing the stent in. The patient has consented for this elective procedure with Dr. Leslie. CURRENT MEDICATIONS: - tramadol 50 mg 1-2 tablets every 8 hours as needed - Ativan 0.5 mg every 8 hours as needed - gabapentin 300 mg three times daily - Tylenol #3 one every 4-6 hours as needed - Flexeril one half to one tablet by mouth three times a day as needed for spasm - aspirin 81 mg daily - Aleve 220 mg twice daily - Voltaren gel 1% three times daily - omeprazole 20 mg daily - Cymbalta 60 mg daily - atenolol 25 mg daily - Lidoderm 5% patches as directed - Lipitor 20 mg daily - multivitamin daily - calcium with vitamin D 600/400 daily ALLERGIES: There are NO KNOWN DRUG ALLERGIES. CHRONIC MEDICAL CONDITIONS: 1. Gastroesophageal reflux disease. 2. Hypertension. 3. Hyperlipidemia. 4. Chronic bilateral knee pain. 5. Low back pain and right foot pain. FAMILY HISTORY: Noncontributory. SOCIAL HISTORY: The patient is a former smoker and only occasionally consumes alcohol. REVIEW OF SYSTEMS: The patient denies fevers, chills, nausea, vomiting or diarrhea. She denies chest pain, shortness of breath, lightheadedness, headaches or abdominal pain. She denies any recent upper respiratory or urinary tract infection symptoms. She continues to have right knee pain with weightbearing activities and activities of daily living. PHYSICAL EXAMINATION: General: Well-nourished, well-developed female in no apparent distress. She is alert, oriented and cooperative. Mood and affect are appropriate. Vital Signs: Height 5 feet 7 inches, weight 186.2 pounds, temperature 97.3, blood pressure 127/83, heart rate 62, respirations 11. Neck: Supple without lymphadenopathy. Heart: Regular rate and rhythm. Lungs: Clear to auscultation bilaterally. Abdomen: Soft, nontender to palpation. Bowel sounds are present. Musculoskeletal: Right knee does show a well-healed surgical scar from her previous surgeries. Tenderness to palpation most pronounced medially and at the medial joint line and also distal lateral thigh. The patient can extend the knee to about 5 degrees and flex to approximately 100 degrees. Right lower extremity strength is 5/5. No hip irritability elicited with range of motion testing. Her calf is soft and nontender to palpation with no palpable cords noted. Dorsalis pedis pulses are palpable. Capillary refill is brisk and her sensation is intact. LABORATORY DATA: Chest x-ray with no active disease. EKG sinus bradycardia with possible anterior myocardial infarction of indeterminate age. CBC: ESR 10, CRP 0.60, WBC 6.3, RBC 4.49, hemoglobin 12.9, hematocrit 40.6, platelets 256. Prothrombin time 12.8, INR 0.95. Comprehensive Metabolic Profile: Fasting glucose 86, BUN elevated at 19, creatinine for GFR 0.61, GFR greater than 60, sodium 140, potassium 4.6, chloride 104, carbon dioxide 32, anion gap decreased at 4, calcium 8.9, AST 16, ALT 25, alkaline phosphatase 103, total bilirubin 0.3, total protein 6.9, albumin 3.9, albumin-globulin ratio 1.30. IMPRESSION: Continued right knee pain status post right total knee arthroplasty and then subsequent resection and revision surgeries. The patient also has a stress fracture to the right femur with delayed healing. PLAN: The patient has consented for possible removal of all or part of her knee replacement, revision and possible placement of cement spacer of the right knee with Dr. Leslie. TIFFANIE
[~2018-06-11] VITALS: Ht 170.2 cm; Wt 81.7 kg
[~2018-06-11 13:18] MED LIST changes: -/DULO30CA PO; +BUPIVACAINE LIPOSOME/PF 1.3% 20ML VIAL (13.3MG/ML)(EXPAREL)(C9290 PER1MG) As Ordered ONE; +CYMB1CAP5 PO; +EPINEPHrine INJ 1 MG/ML 1ML AMP As Ordered ONE; +LR 1,000 ML IV ONE; -SENN1TAB2 PO; +SENN1TAB40 PO; +TRANEXAMIC ACID 100 MG/ML 10ML VIAL As Ordered ONE; +ceFAZolin 1GM INJ (J0690 PER 500MG) As Ordered ONE
[2018-06-11] MEDS ORDERED: BUPIVACAINE HCL 0.25% 30 ML VIAL ONE (13:19)
[2018-06-11] MEDS ORDERED: LIDOCAINE 1% MDV 20ML VIAL ONE (13:19)
[2018-06-11] MEDS ORDERED: ceFAZolin 2 GM/D5W 50 ML IV BAG (J0690 PER 500MG) As Ordered ONE (13:52)
[2018-06-11] MEDS ORDERED: BUPIVACAINE HCL 0.25% 30 ML VIAL As Ordered ONE (14:36)
[2018-06-11] MEDS ORDERED: fentaNYL 100 MCG/2 ML INJECTION (J3010) As Ordered ONE ×3 (14:36→18:27)
[2018-06-11] MEDS ORDERED: MIDAZOLAM INJ 2 MG/2 ML VIAL (J2250) As Ordered ONE ×2 (14:36→14:40)
[2018-06-11] MEDS ORDERED: TRANEXAMIC ACID 100 MG/ML 10ML VIAL As Ordered ONE (14:39)
[2018-06-11] MEDS ORDERED: LIDOCAINE 2% INJ 100 MG/5 ML SDV (FOR ANES.) As Ordered ONE (14:39)
[2018-06-11] MEDS ORDERED: PROPOFOL 200 MG/20 ML VIAL As Ordered ONE (14:39)
[2018-06-11] MEDS ORDERED: ceFAZolin 1GM INJ (J0690 PER 500MG) As Ordered ONE (14:40)
[2018-06-11] MEDS ORDERED: BUPIVACAINE LIPOSOME/PF 1.3% 20ML VIAL (13.3MG/ML)(EXPAREL)(C9290 PER1MG) As Ordered ONE (14:40)
[2018-06-11] MEDS ORDERED: EPINEPHrine INJ 1 MG/ML 1ML AMP As Ordered ONE (14:40)
--- NOTE | 2018-06-11 15:06 | IPN ---
DATE: 06/11/2018 Patient seen and examined. She wishes to go with a right revision arthroplasty. She has evidence of probably gross loosening of her femoral component but the tibial component seems to be solid but can be determined intraoperatively as well. She wishes to proceed with a revision right total knee arthroplasty with anticipation of revising the femoral component to a longer stem and cemented device. She understands the nature of this, the risks of bleeding, infection, damage to nerves, vessels, persistent pain, wear, loosening, blood clots, medical problems, , among others. She understands that this particular procedure is more involved than a traditional primary knee replacement.
[2018-06-11] MEDS ORDERED: BUPIVACAINE/DEXTROSE 0.75% 2 ML AMP As Ordered ONE (15:21)
[2018-06-11] MEDS ORDERED: fentaNYL 100 MCG/2 ML INJECTION (J3010) IV ONE (15:30)
[2018-06-11] MEDS ORDERED: MIDAZOLAM INJ 2 MG/2 ML VIAL (J2250) IV ONE (15:30)
[2018-06-11] MEDS ORDERED: VANCOMYCIN HCL 500 MG/10 ML VIAL (J3370) As Ordered ONE (17:10)
[2018-06-11] MEDS: fentaNYL 100 MCG/2 ML INJECTION (J3010) IV PRN ×8 (18:27→19:15)
[2018-06-11] MEDS ORDERED: PERCOCET 5MG/325MG TAB As Ordered ONE (18:27)
[2018-06-11] MEDS: PERCOCET 5MG/325MG TAB PO PRN ×2 (18:27→19:04)
[2018-06-11] MEDS ORDERED: FLEET ENEMA PR PRN (18:30)
[2018-06-11] MEDS ORDERED: ONDANSETRON 4MG/2ML VIAL (J2405) IV PRN ×2 (18:30→18:45)
[2018-06-11] MEDS ORDERED: ACETAMINOPHEN TAB 650MG DOSE (2X325MG) PO PRN (18:30)
[2018-06-11] MEDS ORDERED: LR 1,000 ML IV SCH ×2 (18:30→18:45)
[2018-06-11] MEDS ORDERED: MORPHINE 4 MG/ML 1ML VIAL/SYRINGE (J2270) IV PRN (18:45)
[2018-06-11] MEDS ORDERED: METOCLOPRAMIDE INJ 10MG/2ML VIAL (J2765) IV PRN (18:45)
[2018-06-11] MEDS ORDERED: MEPERIDINE INJ 25 MG/ML VIAL (J2175) IV PRN (18:45)
--- NOTE | 2018-06-11 19:31 | RO ---
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 PROCEDURE: Revision of right total knee femoral component using a DePuy TC3 125 x 18 stem, size 2.5 femur with 4 mm augmentation distally on the femoral component and 4 mm on the posteromedial aspect of the component. A 15 posterior stabilized rotating platform polyethylene was used. SURGEON: Dr. Moses Leslie WHEEL TRUER: Tanmay Hendricks ANESTHESIA: Spinal and general. ESTIMATED BLOOD LOSS: 100 mL. COMPLICATIONS: None. INDICATIONS: A 68-year-old woman who has been through multiple knee surgeries in the past, had an infected knee a couple of years ago that was resected, then a spacer placed. It was reimplanted with long stems in February of 2017; this went on to loosen on the femoral side, and she developed some stress fracture along the distal lateral femur. She wished to go ahead with revision surgery with anticipation of changing out the femoral component as the tibial side appeared to be solid. Preoperative workup was extensive in terms of infection. She had had a prior bone scan. She had two recent aspirations, one of which grew late staph species but was felt to be a contaminant as the second one was negative and the cell counts were quite low. Dr. León was involved, and we felt comfortable proceeding with a revision of the femoral component. DESCRIPTION OF PROCEDURE: The patient was taken to the operating room, placed in supine position after spinal then general anesthesia was introduced as the spinal was not complete, and the previous incision was used, which was curvilinear around the medial aspect of the patella. Sharp dissection was carried down through subcutaneous tissue. I then recreated flaps above the extensor mechanism to allow for exposure and performed a medial parapatellar arthrotomy per routine, was not able to loan the patella, and we had a little bit of pull off of the tibial tubercle as we flexed the knee up. Then, we did an extensive synovectomy throughout the knee. We then used an osteotome to remove the polyethylene and basically had to take off the posterior portion of the poly in order to get it translated further enough forward to remove the polyethylene. Further synovectomy was performed. The tibial tray was very solid and well seated. The femoral component actually seemed to be somewhat loose. We used an osteotome to get underneath the anterior distal and chamfer cuts which seemed to slide under quite readily. We then used and extractor and removed the femoral component without difficulty. We then removed all the pseudomembrane from the canal and from the distal femoral component. We then sequentially reamed up to a size 18, and reamed far enough to allow for a 125 length stem to bypass the previous stress fracture. We then left that reamer in place and used the cutting guide to clean up cut the distal femur and the posterior femur with two separate cutting guides secured in place and corrected for rotation. Also re-cut the box and with the current position of the stem, it actually directed the prosthesis slightly more medially, which I had anticipated would happen which I think allowed for better position of stem up the canal. We did enlarge the stem by 2 mm from a 16 to an 18 from the previous implant. Once this was done and all the pseudomembrane was removed, we then used a trial component and trial polyethylene and decided on the 15 rotating platform polyethylene TC3, and we were very pleased with the fit and position of the components. The actual components were put on and assembled by the staff assistant on the back table. I irrigated, injected the Exparel solution in the deep tissues and dried the bony surfaces. The staff assistant prepared the bone cement in the modern technique, and this was mixed using tobramycin and vancomycin. The cement was placed around the undersurface of the femoral component and just around the very distal aspect of the stem, and a fair amount was placed underneath the anterior flange of the femoral component and then this was inserted and impacted down. The appropriate augmentation wedges were placed on the femoral component prior to this. We then removed excess bone cement and held this in place while it hardened. Excellent position was noted. It was well seated down. We then placed the 15 rotating platform polyethylene in by flexing the knee and reducing the knee, bringing it out in extension. This was done after the cement had hardened. Knee range of motion was excellent. The patella tracked very well. Excellent stability in flexion and extension. I then repaired this small amount of tibial tubercle pull off with horizontal mattress-type suture using a cottony Deknatel and then used a [id number] FiberWire over the top of this, and these were done through bony holes, which provided an excellent solid repair. And I tested this with flexion back to 105 degrees, which was further than she had preoperatively, and there was no tension of any significance on this repair. I then irrigated, TXA solution was placed, the tourniquet was deflated, then irrigated again. Closed the deep layer with #1 Vicryl suture in an interrupted fashion. The running Stratafix was then used obtaining a watertight closure. I then closed the subcu with #2-0 Vicryl and the skin with lynn. A sterile dressing was applied. She was taken to recovery room in stable condition. There were no known complications. Plan be routine postop. I think we can allow her weight bear as tolerated because the femoral component is now solidly cemented and has good interference of the stem in the femur, and so we should be able to allow her to full weightbear and begin range of motion. The staff assistant was instrumental throughout the case in assisting in exposure and removing the pseudomembrane, and making some of the saw cuts, and assembling the components, and mixing the bone cement, and assisting in decision making. Of note is that in preparation of the femoral component, I did place the box cutting guide and removed a little bit more of the bone medially in the box to allow for fit of the component, and I had neglected to mention that earlier. This is coded as an unusually difficult procedure. This was removal of a stemmed component, and we had to deal with some diffuse bone loss. We downsized the femoral component and had to up size the stem. It was a fairly prolonged procedure. Tourniquet time was roughly 105 minutes.
[2018-06-11 19:40] VITALS: BP 127/63
--- NOTE | 2018-06-11 19:56 | REP ---
PORTABLE UPRIGHT KNEE, TWO VIEWS: HISTORY: Right knee revision. The patient is status post right total knee replacement. There is no acute fracture or dislocation. Subcutaneous air and surgical lynn are present in the overlying soft tissue. IMPRESSION: The patient is status post right total knee replacement. There is anatomic alignment. Electronically Signed by Al Fletcher MD 06/11/2018 08:21 P
[2018-06-11 20:10] VITALS: BP 117/55
[2018-06-11 21:10] VITALS: BP 119/59
[2018-06-11 22:10] VITALS: BP 120/57
[2018-06-11] MEDS: MORPHINE 4 MG/ML 1ML VIAL/SYRINGE (J2270) IV PRN (22:27)
[2018-06-11 23:10] VITALS: BP 124/60
[2018-06-11 23:46] VITALS: O2SAT 96
[2018-06-12] VITALS (8 sets, daily range): BP systolic 121–155; BP diastolic 63–72; O2SAT 92
[2018-06-12] MEDS: PERCOCET 5MG/325MG TAB PO PRN ×2 (01:41→08:14)
--- NOTE | 2018-06-12 02:05 | CR.PDOC ---
General Date of Consultation: Jun 11, 2018 Referring Provider: NIRU BANKS MD Attending Physician: Moses Leslie Consultation REASON FOR CONSULTATION/CHIEF COMPLAINT: . Management of medical comorbidities HISTORY OF PRESENT ILLNESS: . 68-year-old female with past medical history of dyslipidemia, peripheral neuropathy, GERD, and osteoarthritis was admitted under the orthopedic service for revision of her right total knee femoral component. The patient has a history that dates back to November 2015 when she had an initial right total knee arthroplasty. 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 She was treated with IV antibiotics for 6 weeks with the assistance of infectious diseases. However, the patient started to have worsening right knee pain and swelling, and it was believed to be secondary to right knee aseptic loosening of the femoral components. The patient is status post revision of the right knee. At this time, the patient states that her pain is relatively well controlled. She denies any acute complaints of fevers, chills, chest pain, palpitations, abdominal pain, or any nausea/vomiting/diarrhea. The hospitalist service has been consulted for management of the patient's medical comorbidities. ALLERGIES: Please see below. HOME MEDICATIONS: Please see below. PAST MEDICAL HISTORY: As noted above PAST SURGICAL HISTORY: Right knee surgery REVIEW OF SYSTEMS: 10 point review of systems negative unless otherwise specified in HPI. PHYSICAL EXAMINATION: VITAL SIGNS: Please see below. GENERAL APPEARANCE: . Awake, alert, in no acute distress HEENT: . Normocephalic, atraumatic RESPIRATORY: . Clear to auscultation bilaterally CARDIOVASCULAR: . Normal rate, normal S1, S2 ABDOMEN: . Soft, nontender, nondistended EXTREMITIES: . Right knee with limited range of motion due to surgical intervention. Extremity neurovascularly intact distally LABORATORY DATA: Please see below. ASSESSMENT/PLAN: s/p Right Knee Joint Revision Post-operative mgmt as per Ortho Dyslipidemia Cont statin Peripheral Neuropathy Cont Duloxetine, Gabapentin GERD Cont PPI DVT Prophylaxis On Xarelto as per Ortho Vital Signs/I&O Vital Signs Date Time Temp Pulse Resp B/P (MAP) Pulse Ox O2 Delivery O2 Flow Rate FiO2 06/12/18 02:00 97.4 69 18 136/65 (88) 95 06/11/18 23:46 Room Air 06/11/18 23:10 1.5 I&O- Last 24 Hours up to 6 AM 06/12/18 06:00 Intake Total 3520 ml Output Total 1650 ml Balance 1870 ml Laboratory Data Microbiology Microbiology 06/11/18 Fungal Smear, Received Pending 06/11/18 Fungal Culture, Received Pending 06/11/18 Wound Culture, Received Pending 06/11/18 Anaerobic Culture, Received Pending Allergies Coded Allergies: No Known Allergies (Unverified , 05/28/18) Home Medications Scheduled (Aleve) 220 Mg Cap, 220 MG PO BID, (Reported) Ascorbic Acid (Vitamin C) 500 Mg Cap, 500 MG PO DAILY, (Reported) Aspirin (Aspir 81) 81 Mg Tab, 1 TAB PO DAILY for pain for 30 Days, #30 (Reported) Atorvastatin Calcium (Atorvastatin Calcium) 20 Mg Tab, 20 MG PO DAILY, (Reported) Calcium Carbonate/Vitamin D3 (Calcium 500-Vit D3 400 Tablet) 1 Tab Tab, 1 TAB PO DAILY, (Reported) Duloxetine Hcl (Cymbalta) 60 Mg Cap, 60 MG PO DAILY, (Reported) Gabapentin (Gabapentin) 300 Mg Cap, 600 MG PO QHS, (Reported) Lactobacillus Acidophilus (Probiotic) 1 Cap Cap, 1 CAP PO DAILY, (Reported) Lidocaine (Lidoderm) 5 % Dis, 1 PATCH TD DAILY, (Reported) Multivitamins (Multivitamin Adults) 1 Tab Tab, 1 TAB PO DAILY, (Reported) [place]-3/Dha/Epa/Fish Oil (Fish Oil EC 1,000 mg Softgel) 1 Cap Cap, 1 CAP PO DAILY for 30 Days, #30 (Reported) Omeprazole (Omeprazole) 20 Mg Cap, 20 MG PO DAILY, (Reported) Scheduled PRN Acetaminophen (Tylenol Extra Strength) 500 Mg Tab, 1,000 MG PO Q6HP PRN for PAIN, (Reported) Oxycodone HCl/Acetaminophen (Percocet 5-325 mg Tablet) 1 Tab Tab, 1-2 TAB PO Q4H PRN for PAIN, #40 Tramadol HCl (Tramadol HCl) 50 Mg Tab, 50 MG PO Q6HP PRN for pain for 7 Days, #30 (Reported) 1-2 tabs NIRU BANKS MD Jun 12, 2018 02:05
[2018-06-12] MEDS: MORPHINE 4 MG/ML 1ML VIAL/SYRINGE (J2270) IV PRN (05:52)
[2018-06-12 06:13] LABS: HEMATOCRIT 34.1 % (36.0-47.0); HEMOGLOBIN 11.1 g/dl (12.0-15.5); MEAN CORPUSCULAR HEMOGLOBIN 29.9 pg (27.0-33.0); MEAN CORPUSCULAR HGB CONC 32.6 g/dl (32.0-36.5); MEAN CORPUSCULAR VOLUME 91.9 fl (80.0-96.0); PLATELET COUNT, AUTOMATED 259 10^3/uL (150-450); RED BLOOD COUNT 3.71 10^6/uL (4.00-5.40); WHITE BLOOD COUNT 12.2 10^3/uL (4.0-10.0)
[2018-06-12 06:31] LABS: INR 1.08; PROTHROMBIN TIME 14.1 SECONDS (12.1-14.4)
[2018-06-12 07:45] LABS: BLOOD UREA NITROGEN 12 MG/DL (7-18); CALCIUM LEVEL 8.6 MG/DL (8.8-10.2); CARBON DIOXIDE LEVEL 33 MEQ/L (21-32); CHLORIDE LEVEL 103 MEQ/L (98-107); CREATININE FOR GFR 0.77 MG/DL (0.55-1.30); GLOMERULAR FILTRATION RATE > 60.0 (>45); GLUCOSE, FASTING 128 MG/DL (70-100); POTASSIUM SERUM 4.5 MEQ/L (3.5-5.1); SODIUM LEVEL 140 MEQ/L (136-145)
[2018-06-12] MEDS: OMEPRAZOLE 20 MG CAP PO SCH (08:13)
[2018-06-12] MEDS: MULTIVITAMINS/MINERALS THERAP 1 TAB PO SCH (08:13)
[2018-06-12] MEDS: MIRALAX *UNIT DOSE* 17GM PACKET PO SCH (08:13)
[2018-06-12] MEDS: ASCORBIC ACID 500 MG TAB PO SCH (08:13)
[2018-06-12] MEDS: DULoxetine 30 MG CAP (CYMBALTA) PO SCH (08:13)
--- NOTE | 2018-06-12 10:45 | REP ---
AP AND LATERAL RIGHT KNEE, TWO VIEWS: HISTORY: Knee replacement. COMPARISON: 06/11/2018 Two lateral radiographs were obtained. The patient is status-post right total knee replacement. There is no acute fracture or dislocation. Subcutaneous air and surgical lynn are present in the overlying soft tissue. IMPRESSION:The patient is status-post right total knee replacement. There is anatomic alignment. Electronically Signed by Al Fletcher MD 06/12/2018 10:51 A
--- NOTE | 2018-06-12 14:57 | IPNPDOC ---
Date Seen The patient was seen on 06/12/18. Progress Note SUBJECTIVE: 68-year-old female past medical history of osteoarthritis, hyperlipidemia and peripheral neuropathy admitted under orthopedic service for revision of right total knee. Initial R. total knee arthroplasty in 2016 complicated by joint infection and loosening of components requiring recurrent surgeries. Interval history: Patient reported feeling fine. Has discomfort in knee over site of surgery but otherwise has no other complaints. OBJECTIVE PHYSICAL EXAMINATION: VITAL SIGNS: Please see below. General: No acute distress, Alert Eyes: Normal sclera, EOMI, ANDI HENT: Atraumatic, neck supple, moist mucous membranes Cardiovascular: Normal rate, normal rhythm. No murmurs appreciated. Pulmonary: Clear to auscultation b/l, no wheezing GI: Soft, nontender, nondistended Skin: Warm and dry Neuro: CN grossly intact. No focal deficits. Strengths equal b/l. Psych: oriented x 3 LABORATORY DATA, IMAGING STUDIES, MICROBIOLOGY: Please see below. DVT prophylaxis ordered?: Xarelto ASSESSMENT AND PLAN: 1. R. total knee revision - Initial surgery in 2016 with complications requiring multiple surgeries. - Post revision 06/11/18. - Continue with PT/ - Pain control. 2. HLD - Resume home medications. 3. Peripheral neuropathy. - On duloxetine and Gabapentin. resume. DVT ppx: On Xarelto DISPOSITION: Rehab? VS, I&O, 24H, Fishbone Vital Signs/I&O Vital Signs Date Time Temp Pulse Resp B/P (MAP) Pulse Ox O2 Delivery O2 Flow Rate FiO2 06/12/18 08:44 20 06/12/18 06:00 96.7 74 133/63 (86) 96 06/11/18 23:46 Room Air 06/11/18 23:10 1.5 I&O- Last 24 Hours up to 6 AM 06/12/18 06:00 Intake Total 3820 ml Output Total 2750 ml Balance 1070 ml Laboratory Data 24H LABS Laboratory Tests 2 06/12/18 05:43: Nucleated Red Blood Cells % (auto) 0.0, Prothrombin Time 14.1, Prothromb Time International Ratio 1.08, Anion Gap 4L, Glomerular Filtration Rate > 60.0, Blood Urea Nitrogen 12, Creatinine 0.77, Sodium Level 140, Potassium Level 4.5, Chloride Level 103, Carbon Dioxide Level 33H, Calcium Level 8.6L CBC/BMP Laboratory Tests 4/17/19 05:43 Red Blood Count 3.71 L, Mean Corpuscular Volume 91.9, Mean Corpuscular Hemoglobin 29.9, Mean Corpuscular Hemoglobin Concent 32.6, Red Cell Distribution Width 14.1, Calcium Level 8.6 L Microbiology Microbiology 06/11/18 Fungal Smear, Received Pending 06/11/18 Fungal Culture, Received Pending 06/11/18 Wound Culture, Received Pending 06/11/18 Anaerobic Culture, Received Pending AWAIS DEAN MD Jun 12, 2018 14:57
[2018-06-12] MEDS ORDERED: RIVAROXABAN 10 MG TAB (XARELTO) PO SCH (18:00)
[2018-06-12] MEDS ORDERED: GABAPENTIN 300 MG CAP PO SCH (21:00)
[2018-06-12] MEDS ORDERED: ATORVASTATIN 20 MG TAB PO SCH (21:00)
[2018-06-12] MEDS ORDERED: traMADol 50 MG TAB PO PRN (21:15)
[2018-06-12] MEDS: traMADol 50 MG TAB PO PRN (21:17)
[2018-06-13] MEDS: traMADol 50 MG TAB PO PRN (05:47)
[2018-06-13 06:00] VITALS: BP 126/66
[2018-06-13 06:51] LABS: HEMATOCRIT 34.7 % (36.0-47.0); MEAN CORPUSCULAR HEMOGLOBIN 28.9 pg (27.0-33.0); MEAN CORPUSCULAR HGB CONC 31.7 g/dl (32.0-36.5); MEAN CORPUSCULAR VOLUME 91.3 fl (80.0-96.0); PLATELET COUNT, AUTOMATED 225 10^3/uL (150-450); WHITE BLOOD COUNT 11.3 10^3/uL (4.0-10.0)
[2018-06-13] MEDS ORDERED: XARE10TA PO (06:51)
[2018-06-13] MEDS ORDERED: TRAM50TA2 PO (06:51)
[2018-06-13 07:17] LABS: BLOOD UREA NITROGEN 9 MG/DL (7-18); CALCIUM LEVEL 8.6 MG/DL (8.8-10.2); CARBON DIOXIDE LEVEL 33 MEQ/L (21-32); CHLORIDE LEVEL 102 MEQ/L (98-107); CREATININE FOR GFR 0.59 MG/DL (0.55-1.30); GLOMERULAR FILTRATION RATE > 60.0 (>45); GLUCOSE, FASTING 103 MG/DL (70-100); POTASSIUM SERUM 3.9 MEQ/L (3.5-5.1); SODIUM LEVEL 139 MEQ/L (136-145)
[2018-06-13] MEDS: OMEPRAZOLE 20 MG CAP PO SCH (08:02)
[2018-06-13] MEDS: MULTIVITAMINS/MINERALS THERAP 1 TAB PO SCH (08:02)
[2018-06-13] MEDS: ASCORBIC ACID 500 MG TAB PO SCH (08:02)
[2018-06-13] MEDS: MIRALAX *UNIT DOSE* 17GM PACKET PO SCH (08:02)
[2018-06-13] MEDS: DULoxetine 30 MG CAP (CYMBALTA) PO SCH (08:03)
--- NOTE | 2018-06-13 17:15 | IPNPDOC ---
Date Seen The patient was seen on 06/13/18. Progress Note SUBJECTIVE: 68-year-old female past medical history of osteoarthritis, hyperlipidemia and peripheral neuropathy admitted under orthopedic service for revision of right total knee. Initial R. total knee arthroplasty in 2016 complicated by joint infection and loosening of components requiring recurrent surgeries. Interval history: Patient reported feeling fine. Has been able to walk around and do PT despite knee discomfort. Discharged by primary and patient is packed ready to go home today. OBJECTIVE PHYSICAL EXAMINATION: VITAL SIGNS: Please see below. General: No acute distress, Alert Eyes: Normal sclera, EOMI, ANDI HENT: Atraumatic, neck supple, moist mucous membranes Cardiovascular: Normal rate, normal rhythm. No murmurs appreciated. Pulmonary: Clear to auscultation b/l, no wheezing GI: Soft, nontender, nondistended Skin: Warm and dry Neuro: CN grossly intact. No focal deficits. Strengths equal b/l. Psych: oriented x 3 LABORATORY DATA, IMAGING STUDIES, MICROBIOLOGY: Please see below. DVT prophylaxis ordered?: Xarelto ASSESSMENT AND PLAN: 1. R. total knee revision - Initial surgery in 2016 with complications requiring multiple surgeries. - Post revision 06/11/18. - Continue with PT as outpatient post discharge. - Pain control. 2. HLD - c/w home medications. 3. Peripheral neuropathy. - On duloxetine and Gabapentin. continue. DVT ppx: On Xarelto DISPOSITION: Home VS, I&O, 24H, Fishbone Vital Signs/I&O Vital Signs Date Time Temp Pulse Resp B/P (MAP) Pulse Ox O2 Delivery O2 Flow Rate FiO2 06/13/18 06:17 16 06/13/18 06:00 97.4 79 126/66 (86) 96 0.5 06/12/18 20:45 Room Air I&O- Last 24 Hours up to 6 AM 06/13/18 06:00 Intake Total 1620 ml Output Total 4000 ml Balance -2380 ml Laboratory Data 24H LABS Laboratory Tests 2 06/13/18 06:14: Nucleated Red Blood Cells % (auto) 0.0, Anion Gap 4L, Glomerular Filtration Rate > 60.0, Blood Urea Nitrogen 9, Creatinine 0.59, Sodium Level 139, Potassium Level 3.9, Chloride Level 102, Carbon Dioxide Level 33H, Calcium Level 8.6L CBC/BMP Laboratory Tests 06/13/18 06:14 Red Blood Count 3.80 L, Mean Corpuscular Volume 91.3, Mean Corpuscular Hemoglobin 28.9, Mean Corpuscular Hemoglobin Concent 31.7 L, Red Cell Distribut ion Width 14.5, Calcium Level 8.6 L Microbiology Microbiology 06/11/18 Fungal Smear, Received Pending 06/11/18 Fungal Culture, Received Pending 06/11/18 Wound Culture - Final, Complete 06/11/18 Anaerobic Culture - Final, Complete AWAIS DEAN MD Jun 13, 2018 17:15
== END 2018-06-13 11:20 | disposition home or self-care (01) | DRG 468 ==
LOC: M SDC 13:18 → EDSTATUS 15:30 → M MS5PR 19:30 → M SDC 19:34 → M MS5PR 19:34
PROVIDERS: ADMIT Orthopaedic Surgery; ATTEND Orthopaedic Surgery
PROC: 0SRT0J9 Replacement of Right Knee Joint, Femoral Surface with Synthetic Substitute, Cemented, Open Approach (ICD-10-PCS; 2018-06-11)
PROC: 0SPT0JZ Removal of Synthetic Substitute from Right Knee Joint, Femoral Surface, Open Approach (ICD-10-PCS; principal; 2018-06-11 15:30)
DX: T84.032A Mechanical loosening of internal right knee prosthetic joint, initial encounter (principal); Z79.899 Other long term (current) drug therapy; Z79.82 Long term (current) use of aspirin; K21.9 Gastro-esophageal reflux disease without esophagitis; I10 Essential (primary) hypertension; E78.5 Hyperlipidemia, unspecified; Z87.891 Personal history of nicotine dependence; G62.9 Polyneuropathy, unspecified; M19.90 Unspecified osteoarthritis, unspecified site; T84.53XA Infection and inflammatory reaction due to internal right knee prosthesis, initial encounter; Y83.1 Surgical operation with implant of artificial internal device as the cause of abnormal reaction of the patient, or of later complication, without mention of misadventure at the time of the procedure

== ENCOUNTER → 2018-07-28 | Outpatient (REF) | payer MEDICARE ==
[~2018-07-28] MED LIST changes: -BUPIVACAINE LIPOSOME/PF 1.3% 20ML VIAL (13.3MG/ML)(EXPAREL)(C9290 PER1MG) As Ordered ONE; -EPINEPHrine INJ 1 MG/ML 1ML AMP As Ordered ONE; -LR 1,000 ML IV ONE; -TRANEXAMIC ACID 100 MG/ML 10ML VIAL As Ordered ONE; +XARE10TA PO; -ceFAZolin 1GM INJ (J0690 PER 500MG) As Ordered ONE
== END ==
LOC: M SFHCLERA 10:11
PROVIDERS: ATTEND Nurse Practitioner Family
DX: J02.9 Acute pharyngitis, unspecified (principal)

== ENCOUNTER → 2019-05-23 | Outpatient (REF) | payer MEDICARE ==
[~2019-05-23] MED LIST changes: +CYAN500T8 PO; +OMEP1CAP73 PO; -OMEP20CA3 PO; +SENN-53 PO; -SENN1TAB40 PO; -VITA500T3 PO
== END ==
LOC: M LABDRAW1 09:07
PROVIDERS: ATTEND Orthopaedic Surgery
DX: S92.355A Nondisplaced fracture of fifth metatarsal bone, left foot, initial encounter for closed fracture (principal); X58.XXXA Exposure to other specified factors, initial encounter

== ENCOUNTER → 2023-04-02 | Outpatient (CLI) | payer MEDICARE ==
[~2023-04-02] MED LIST changes: -ASPI81TA85 PO; +ASPI81TA86 PO; +CYAN500T14 PO; -CYAN500T8 PO; +CYCL-707 PO; -CYCL10TA PO; -CYMB60CA3 PO; +CYMB60CA4 PO; +FISH10005 PO; -FISH7.5C PO; +GABA-282 PO; -GABA-843 PO
== END ==
LOC: M RAD 07:42
PROVIDERS: ATTEND Orthopaedic Surgery
DX: Z96.651 Presence of right artificial knee joint (principal)
CPT/HCPCS: 78315; A9503